=== PATIENT | female | born 1970 | race Asian ===

== ENCOUNTER 2020-03-30 07:09 | Outpatient (REF) | payer OTHER, SELFPAY | END 2020-03-30 07:10 | disposition home or self-care (01) | LOC: HO.LAB 07:09 | PROVIDERS: PCP Internal Medicine; Visit Provider Internal Medicine | DX: Z20.828 Contact with and (suspected) exposure to other viral communicable diseases (principal) | CPT/HCPCS: 87635 ==

== ENCOUNTER → 2021-03-04 13:16 | Outpatient (BNVA) | payer OTHER, SELFPAY | PROVIDERS: PCP Internal Medicine; Visit Provider Nurse Practitioner Family | DX: M54.16 Radiculopathy, lumbar region (principal); M79.18 Myalgia, other site | CPT/HCPCS: 99202 ==

== ENCOUNTER 2021-03-29 08:12 | Outpatient (REF) | payer OTHER, SELFPAY ==
[2021-03-29 08:22] LABS: MANUAL DIFF FLAG NO
[2021-03-29 09:13] LABS: Basophils Absolute Auto 0.1 X10*3/uL (0.0-0.2); Basophils Percent Auto 1.2 % (0-2); Eosinophils Absolute Auto 0.2 X10*3/uL (0.0-0.4); Eosinophils Percent Auto 3.8 % (0-4); Hematocrit 34.2 % (37-47); Hemoglobin 10.9 g/dl (12.0-16.0); Lymphocytes Absolute Auto 2.8 X10*3/uL (1.2-4.9); Lymphocytes Percent Auto 55.3 % (20-40); Mean Corpuscular HGB Conc 31.9 g/dl (31.0-35.0); Mean Corpuscular Hemoglobin 26.6 pg (27.0-33.0); Mean Corpuscular Volume 83.4 fL (80-98); Mean Platelet Volume 10.8 fL (9.4-12.3); Monocytes Absolute Auto 0.4 X10*3/uL (0.1-1.2); Monocytes Percent Auto 8.4 % (2-11); Neutrophils Absolute Auto 1.6 X10*3/uL (2.0-8.3); Neutrophils Percent Auto 31.3 % (45-73); Platelet Count 336 X10*3/uL (160-400); Red Cell Distribution Width 15.9 % (11.0-16.0)
[2021-03-29 09:42] LABS: Alanine Aminotransferase 14 U/L (0-31); Albumin Level 4.1 g/dL (3.5-5.0); Alkaline Phosphatase 95 U/L (39-117); Anion Gap 11 (12-20); Aspartate Amino Transferase 19 U/L (5-31); Bilirubin Total 0.4 mg/dL (0.0-1.0); Blood Urea Nitrogen 10 mg/dL (9-16); Calcium 9.3 mg/dL (8.4-10.2); Carbon Dioxide 28 mmol/L (22-29); Chloride 107 mmol/L (96-108); Cholesterol 229 mg/dL; Estimated Glomerular Filt Rate > 60; Glucose Fasting 96 mg/dL (60-99); HDL Cholesterol 46 mg/dL; LDL Cholesterol Calculated 149 mg/dl; Potassium 4.8 mmol/L (3.3-5.1); Sodium 141 mmol/L (135-145); Total Protein 7.2 g/dL (6.5-8.0); Triglycerides 171 mg/dL
[2021-04-02 13:41] LABS: Vitamin D 25-OH, D2 <4 ng/mL; Vitamin D 25-OH, D3 27 ng/mL; Vitamin D 25-OH, Total 27 ng/mL (30-100)
== END 2021-03-29 08:13 | disposition home or self-care (01) ==
LOC: HO.LAB 08:12
PROVIDERS: PCP Internal Medicine; Visit Provider Internal Medicine
DX: D64.9 Anemia, unspecified (principal); G43.909 Migraine, unspecified, not intractable, without status migrainosus; E78.5 Hyperlipidemia, unspecified; E55.9 Vitamin D deficiency, unspecified
CPT/HCPCS: 36415; 80053; 80061; 82306; 85025

== ENCOUNTER 2021-04-29 09:21 | Outpatient (REF) | payer OTHER, SELFPAY ==
[2021-04-29 10:44] LABS: Influenza A PCR NEGATIVE (Negative); Influenza B PCR NEGATIVE (Negative); Resp Syncy Virus RNA Qual PCR POSITIVE (Negative); SARS COV2 PCR INHOUSE NEGATIVE (Negative)
== END 2021-04-29 09:22 | disposition home or self-care (01) ==
LOC: HO.LAB 09:21
PROVIDERS: PCP Internal Medicine; Visit Provider Internal Medicine
DX: Z20.822 Contact with and (suspected) exposure to COVID-19 (principal); R43.9 Unspecified disturbances of smell and taste
CPT/HCPCS: 0241U; 36415

== ENCOUNTER 2021-07-04 09:26 | Outpatient (REF) | payer OTHER, SELFPAY ==
[2021-07-04 11:31] LABS: Appearance Urine CLEAR; Color Urine YELLOW; Glucose Urine UA NEG (NEG); Leukocyte Esterase Urine NEG (NEG); Nitrite Urine NEG (NEG); Specific Gravity - Urine <= 1.005 (1.005-1.025); UACC Culture Trigger NO; Urine Blood TRACE (NEG); Urine Ketones NEG (NEG); Urine Protein NEG (NEG-TRACE)
[2021-07-04 12:02] LABS: WBC Urine 0 /HPF (0-4)
== END 2021-07-04 09:27 | disposition home or self-care (01) ==
LOC: HO.LAB 09:26
PROVIDERS: PCP Internal Medicine; Referring Provider Internal Medicine; Visit Provider Internal Medicine Gastroenterology
DX: K62.5 Hemorrhage of anus and rectum (principal); K21.00 Gastro-esophageal reflux disease with esophagitis, without bleeding; R30.0 Dysuria
CPT/HCPCS: 81001; 99202

== ENCOUNTER 2021-08-01 10:14 | Emergency (ER) | payer OTHER, SELFPAY ==
[2021-08-01 10:25] VITALS: BP 146/81; PULSE 71; RESP 16; TEMP 36.6; O2SAT 100; BMI 24.7
--- NOTE | 2021-08-01 11:18 | ED.GENADULT ---
HPI - General Adult General Chief complaint: Abdominal Pain Stated complaint: RECTAL AND LEG PAIN Time Seen by Provider: 08/01/21 11:06 Source: patient Mode of arrival: ambulatory Limitations: no limitations History of Present Illness HPI narrative: Patient comes to the emergency room complaining of rectal pain. Patient states she has had hemorrhoids for 3 weeks. She was seen at [facility] for the same reason, she was prescribed rectal suppositories, topical medication. Patient states that the hemorrhoid keeps getting bigger and more painful. Patient states that she has not seen it bleed, but she can no longer sit due to pain. Patient states that she has been taking laxative, she is now having soft bowel movements. However, whenever she passes stool, the pain is very intense. Related Data Home Medications Medication Instructions Recorded Confirmed albuterol sulfate 90 mcg/actuation 2 puff INHALATION Q4-6H PRN 04/09/20 03/27/21 aerosol inhaler tizanidine 4 mg tablet 4 mg PO BEDTIME 07/04/21 Previous Rx's Medication Instructions Recorded omeprazole 40 mg capsule,delayed 40 mg PO DAILY 90 Days #90 cap 08/15/20 release cholecalciferol (vitamin D3) 50 50 mcg PO DAILY #30 tab 01/14/21 mcg (2,000 unit) tablet acyclovir 800 mg tablet 800 mg PO BID 5 Days #10 tab 03/28/21 escitalopram oxalate 10 mg tablet 10 mg PO DAILY 90 Days #90 tab 04/24/21 azithromycin 250 mg tablet See Rx Instructions PO .COMPLEX #6 04/29/21 tab fluticasone propionate 50 1 spray INTRANASAL DAILY #9.9 ml 04/29/21 mcg/actuation nasal spray,suspension (Flonase Allergy Relief) naproxen 500 mg tablet 500 mg PO BID PRN 30 Days #60 tab 05/19/21 ondansetron 4 mg disintegrating 4 mg PO Q8H PRN #20 tab 07/04/21 tablet bisacodyl 5 mg tablet,delayed 10 mg PO ONCE 1 Days #2 tab 07/15/21 release (Dulcolax (bisacodyl)) polyethylene glycol 3350 17 238 g PO ONCE 1 Days #238 g 07/15/21 gram/dose oral powder (Miralax) hydrocortisone acetate 25 mg 25 mg LA BEDTIME #12 ea 07/22/21 rectal suppository (Anusol-HC) hydroxyzine pamoate 25 mg capsule 25 mg PO BID PRN #20 cap 07/22/21 (Vistaril) nitroglycerin 0.4 % (w/w) rectal 1 inch LA BID #30 g 08/01/21 ointment polyethylene glycol 3350 17 gram 17 g PO BID 7 Days #14 ea 08/01/21 oral powder packet (Miralax) tramadol 50 mg tablet 50 mg PO BID PRN #7 tab 08/01/21 Allergies Allergy/AdvReac Type Severity Reaction Status Date / Time meloxicam [MELOXICAM] Allergy Intermediate NAUSEA & Verified 07/22/21 11:32 VOMITING, GI UPSET Penicillins [PENICILLINS] Allergy Intermediate RASH Verified 07/22/21 11:32 prednisone [PREDNISONE] Allergy Intermediate Hives, Rash Verified 07/22/21 11:32 Review of Systems Review of Systems: Constitutional : No Weight loss, No Fever, No Chills, No Night Sweats, No Fatigue, No Malaise ENT/Mouth : No Hearing loss, No Ear Pain, No Nasal Congestion, No Sinus Pain, No Hoarseness, No sore throat, No Rhinorrhea, No Swallowing Difficulty Eyes: No Eye Pain, No Swelling, No Redness, No Foreign Body, No Discharge, No Vision Changes Cardiovascular : No Chest Pain, No SOB, No Dyspnea on Exertion, No Orthopnea, No Edema, No Palpitations Respiratory : No Cough, No Sputum, No Wheezing, No Smoke Exposure, No Dyspnea Gastrointestinal : No Nausea, No Vomiting, No Diarrhea, No Constipation, No abdominal Pain, No Hematochezia, No Melena Genitourinary : no irregular bleeding, No Dysuria, No Urinary Frequency, No Hematuria, No Urinary Incontinence, No Urgency, No Flank Pain, No Urinary Flow Changes, No Hesitancy, complaining of rectal pain/hemorrhoid Musculoskeletal : No joint pain, No Myalgias, No Joint Swelling Skin : No Skin Lesions, No rash Neuro : No Weakness, No Numbness, No Paresthesias, No Loss of Consciousness, No Dizziness, No Headache Psych : No Anxiety/Panic, No Depression, No SI/HI/AH/VH, No Social Issues, Heme/Lymph: No Bruising, No Bleeding,No Lymphadenopathy Endocrine : No Polyuria, No Polydipsia, No Temperature Intolerance [facility] Past Medical History Medical History Back pain Constipation by delayed colonic transit RAVI (generalized anxiety disorder) GERD (gastroesophageal reflux disease) HSV-2 (herpes simplex virus 2) infection Migraines Mild persistent asthma, uncomplicated Mild recurrent major depression Mild single current episode of major depressive disorder Nausea Polyarthralgia Scoliosis Surgical History Amputated toe History of left knee surgery History of mammogram History of splenectomy History of tubal ligation Family History Family History Father Hypertension Diabetes CVD (cardiovascular disease) Mother Hypertension Social History Social History Housing: Apartment Alcohol intake: never Patient Tobacco Use Status: Never used Tobacco e-Cigarette/Vaping Use: Never Used Second Hand Smoke Exposure: No Advance Directives: No Advance Directives Information Provided: No service: No Current occupational status: unemployed Physical Exam ED Vital Signs: Vital Signs - 24 hr 08/01/21 10:25 Temperature 97.9 F Pulse Rate 71 Respiratory Rate 16 Blood Pressure 146/81 H Pulse Oximetry 100 BMI result Body Mass Index 24.7 Const Other: Appearance: Alert. Oriented X3. No acute distress. Eyes: Pupils equal, round and reactive to light. ENT: Pharynx normal. Neck: Normal inspection. Neck supple. No lymph nodes noted. No crepitus CVS: Normal heart rate and rhythm. Pulses normal. Normal S1 and S2 Respiratory: No respiratory distress. Breath sounds normal. No Wheezing. No rales Abdomen: Soft and nontender. No rigidity. No distention. Rectal: Patient has 2 thrombosed hemorrhoids, approximately 1 cm each, next to each other very painful to touch Skin: Skin warm and dry. Normal skin color. Normal skin turgor. Extremities: No lower extremity edema. No lower extremity edema. No Lacerations. No Rash Neuro: Oriented X 3. No motor deficit. No sensory deficit. Moving all extermities. No slurred speech. Course Course Course Narrative: I discussed with the patient that she will need an excision of the thrombosed hemorrhoid. Discussed with the patient the procedure. Patient states that she is agreeable. Patient denies being on any blood thinners Apical area was cleaned with Betadine, both hemorrhoids were injected with 2% lidocaine. Oval incisions were made over the 2 hemorrhoids. Two small blood clots were excised. Bleeding controlled. Patient will follow-up with surgery. Discharge Plan Discharge Clinical Impression: Hemorrhoids, external, thrombosed Patient Disposition: Home, Self-Care Instructions: Thrombosed Hemorrhoid (ED) Additional Instructions: Please follow-up with your primary care physician tomorrow. If you have any worsening or new symptoms, please return to the emergency room or call 911 Prescriptions: New nitroglycerin 0.4 % (w/w) ointment 1 inch LA BID Qty: 30 0RF tramadol 50 mg tablet 50 mg PO BID PRN (Reason: pain) Qty: 7 0RF polyethylene glycol 3350 [Miralax] 17 gram powder in packet 17 g PO BID 7 Days Qty: 14 0RF No Action omeprazole 40 mg capsule,delayed release(DR/EC) 40 mg PO DAILY 90 Days Qty: 90 3RF cholecalciferol (vitamin D3) 50 mcg (2,000 unit) tablet 50 mcg PO DAILY Qty: 30 11RF acyclovir 800 mg tablet 800 mg PO BID 5 Days Qty: 10 1RF escitalopram oxalate 10 mg tablet 10 mg PO DAILY 90 Days Qty: 90 3RF naproxen 500 mg tablet 500 mg PO BID PRN (Reason: pain) 30 Days Qty: 60 1RF bisacodyl [Dulcolax (bisacodyl)] 5 mg tablet,delayed release (DR/EC) 10 mg PO ONCE 1 Days Qty: 2 0RF Rx Instructions: Take 2 tablets at 12:00pm the day before your procedure, bowel prep polyethylene glycol 3350 [Miralax] 17 gram/dose powder 238 g PO ONCE 1 Days Qty: 238 0RF Rx Instructions: Take as directed by mouth, bowel prep albuterol sulfate 90 mcg/actuation HFA aerosol inhaler 2 puff inhalation Q4-6H PRN0RF azithromycin 250 mg tablet See Rx Instructions PO .COMPLEX Qty: 6 0RF Rx Instructions: take 500 mg today (day 1), then 250 mg for 4 days (days 2-5) PO fluticasone propionate [Flonase Allergy Relief] 50 mcg/actuation spray,suspension 1 spray intranasal DAILY Qty: 9.9 1RF Rx Instructions: administer into each nostril hydroxyzine pamoate [Vistaril] 25 mg capsule 25 mg PO BID PRN (Reason: anxiety) Qty: 20 0RF hydrocortisone acetate [Anusol-HC] 25 mg suppository 25 mg LA BEDTIME Qty: 12 0RF tizanidine 4 mg tablet 4 mg PO BEDTIME 0RF ondansetron 4 mg tablet,disintegrating 4 mg PO Q8H PRN (Reason: nausea and vomiting) Qty: 20 0RF Referrals: Nestor Mcconnell MD [Physician] - 2 days
[2021-08-01] MEDS: oxyCODONE HCl Immed Release 5 MG TABLET PO (11:36)
[2021-08-01] MEDS: Lidocaine HCl 2 % MPF 5 ML VIAL 10 ML INFILTRATI (11:40)
[2021-08-01 13:09] VITALS: BP 131/72; PULSE 66; RESP 15; TEMP 36.3; O2SAT 98
== END 2021-08-01 13:35 | disposition home or self-care (01) ==
PROVIDERS: Emergency Provider Emergency Medicine; PCP Internal Medicine
DX: K64.5 Perianal venous thrombosis (principal); K62.89 Other specified diseases of anus and rectum
CPT/HCPCS: 46083; 99284

== ENCOUNTER → 2021-08-07 07:59 | Outpatient (BNVA) | payer OTHER, SELFPAY | PROVIDERS: PCP Internal Medicine; Referring Provider Internal Medicine; Visit Provider Surgery | DX: K64.4 Residual hemorrhoidal skin tags (principal); K64.8 Other hemorrhoids | CPT/HCPCS: 46600; 99202 ==

== ENCOUNTER 2021-08-12 12:08 | Outpatient (REF) | payer OTHER, SELFPAY ==
--- NOTE | ~2021-08-12 | MM_ITS ---
EXAMINATION: MM SCREENING DIGITAL BREAST TOMOSYNTHESIS, BILATERAL CLINICAL INFORMATION: Screening. Asymptomatic. The lifetime risk of breast cancer based on the Tyrer-Cuzick Model is 6%. COMPARISON: Mammography: 10/18/2018, 10/17/2015 TECHNIQUE: Digital breast tomosynthesis is performed in both the craniocaudal and mediolateral oblique views along with computer-aided detection (CAD). Synthesized 2D images are generated from the tomosynthesis. Additional left MLO view is provided. FINDINGS: There are scattered areas of fibroglandular density (ACR BI-RADS breast composition Category b). There are no significant masses, abnormal calcifications, or other abnormalities. Parenchymal pattern is similar to prior studies. There are no significant changes. MM/MM tomosynthesis screening BI IMPRESSION: No mammographic evidence of malignancy. ASSESSMENT: BI-RADS 1: Negative RECOMMENDATION: Routine annual mammography screening. This patient's information was entered into a reminder system with a target due date for their next mammogram.
== END 2021-08-12 12:09 | disposition home or self-care (01) ==
LOC: HO.MAMMO 12:08
PROVIDERS: PCP Internal Medicine; Visit Provider Internal Medicine
DX: Z12.31 Encounter for screening mammogram for malignant neoplasm of breast (principal)
CPT/HCPCS: 77063; 77067

== ENCOUNTER 2021-12-29 10:34 | Outpatient (REF) | payer OTHER, SELFPAY ==
--- NOTE | ~2021-12-29 | XR_ITS ---
EXAMINATION: XR ELBOW, LEFT CLINICAL INFORMATION: Pain. COMPARISON: None TECHNIQUE: AP, lateral, and oblique views of the left elbow. FINDINGS: There is no evidence of acute fracture or dislocation of the left elbow. No elbow effusion is evident. Joint spaces are maintained. There is some soft tissue prominence seen about the olecranon which may be related to olecranon bursa. XR/XR elbow LT min 3V IMPRESSION: 1. No bony abnormality of the left elbow identified. 2. No effusion. 3. Possible olecranon bursitis.
[2021-12-29 14:21] LABS: Cholesterol 248 mg/dL; HDL Cholesterol 48 mg/dL; LDL Cholesterol Calculated 173 mg/dl; Triglycerides 135 mg/dL
== END 2021-12-29 10:35 | disposition home or self-care (01) ==
LOC: HO.HMGCLDS 10:34
PROVIDERS: Visit Provider Nurse Practitioner Family
DX: M25.522 Pain in left elbow (principal); E78.00 Pure hypercholesterolemia, unspecified
CPT/HCPCS: 36415; 73080; 80061

== ENCOUNTER 2021-12-30 09:08 | Emergency (ER) | payer OTHER, SELFPAY | END 2021-12-30 10:57 | disposition left against medical advice (07) | PROVIDERS: Emergency Provider Emergency Medicine; PCP Internal Medicine | DX: R10.9 Unspecified abdominal pain (principal) ==

== ENCOUNTER 2022-05-11 10:39 | Outpatient (REF) | payer OTHER, SELFPAY ==
--- NOTE | ~2022-05-11 | XR_ITS ---
EXAMINATION: XR CHEST CLINICAL INFORMATION: Pneumonia. COMPARISON: 08/18/2018 chest radiographs. TECHNIQUE: 2 views of the chest were obtained. FINDINGS: No significant abnormality is noted involving the heart, lungs, mediastinum, bony thorax or soft tissues. XR/XR chest 2V IMPRESSION: No acute cardiopulmonary process.
== END 2022-05-11 10:40 | disposition home or self-care (01) ==
LOC: HO.HMGCX 10:39
PROVIDERS: PCP Internal Medicine; Visit Provider Internal Medicine
DX: J18.9 Pneumonia, unspecified organism (principal)
CPT/HCPCS: 71046

== ENCOUNTER 2022-05-11 11:25 | Outpatient (REF) | payer OTHER, SELFPAY ==
[2022-05-11 14:44] LABS: Influenza A PCR POSITIVE (Negative); Influenza B PCR NEGATIVE (Negative); Resp Syncy Virus RNA Qual PCR NEGATIVE (Negative); SARS COV2 PCR INHOUSE NEGATIVE (Negative)
== END 2022-05-11 11:26 | disposition home or self-care (01) ==
LOC: HO.LAB 11:25
PROVIDERS: Visit Provider Internal Medicine
DX: Z20.822 Contact with and (suspected) exposure to COVID-19 (principal); R43.9 Unspecified disturbances of smell and taste
CPT/HCPCS: 0241U

== ENCOUNTER 2022-06-22 06:22 | Outpatient (REF) | payer OTHER, SELFPAY ==
[2022-06-22 07:52] LABS: Appearance Urine Clear; Color Urine Yellow; Glucose Urine UA Negative (Negative); Leukocyte Esterase Urine Negative (Negative); Nitrite Urine Negative (Negative); PH 8.5 (5.0-9.0); Urine Blood Negative (Negative); Urine Ketones Negative (Negative); Urine Protein Negative (Neg-Trace)
[2022-06-22 08:09] LABS: Alanine Aminotransferase 14 U/L (0-31); Alkaline Phosphatase 96 U/L (39-117); Anion Gap 11 (12-20); Aspartate Amino Transferase 19 U/L (5-31); Bilirubin Total 1.1 mg/dL (0.0-1.0); Blood Urea Nitrogen 10 mg/dL (9-16); Carbon Dioxide 29 mmol/L (22-29); Chloride 105 mmol/L (96-108); Cholesterol 250 mg/dL; Estimated Glomerular Filt Rate > 60; Glucose Fasting 88 mg/dL (60-99); HDL Cholesterol 51 mg/dL; LDL Cholesterol Calculated 174 mg/dl; Sodium 140 mmol/L (135-145); Total Protein 7.1 g/dL (6.5-8.0); Triglycerides 127 mg/dL
== END 2022-06-22 06:23 | disposition home or self-care (01) ==
LOC: HO.LAB 06:22
PROVIDERS: PCP Internal Medicine; Visit Provider Internal Medicine
DX: Z00.00 Encounter for general adult medical examination without abnormal findings (principal); R30.0 Dysuria; E78.5 Hyperlipidemia, unspecified
CPT/HCPCS: 36415; 80053; 80061; 81003

== ENCOUNTER 2023-10-12 16:15 | Outpatient (AMB) | payer OTHER, SELFPAY ==
--- NOTE | 2023-10-12 16:20 | MHC.PC.OV ---
Vital Signs 10/12/23 16:21 Height 5 ft 4 in Weight 137 lb BMI 23.5 BP 152/70 H Blood Pressure Location Lt brachial Position Sitting Intake Visit Reasons: Leg & Back Pain Intake Note: Patient here c/o leg pain, back pain, hand pain Supervisor Hot Dip Tinning Required: No Accompanied by: Self / Same As Patient Allergies meloxicam [MELOXICAM] Allergy (Intermediate, Verified 10/12/23 16:36) NAUSEA & VOMITING, GI UPSET Penicillins [PENICILLINS] Allergy (Intermediate, Verified 10/12/23 16:36) RASH prednisone [PREDNISONE] Allergy (Intermediate, Verified 10/12/23 16:36) Hives, Rash Medication List - Last Reconciled 10/12/23 by Erica Corral MD acetaminophen ER 650 mg PO Q8H PRN 30 days fluticasone propionate 50 mcg/actuation (Flonase Allergy Relief) 1 spray intranasal DAILY omeprazole 40 mg PO DAILY 90 days tramadol 50 mg PO BID PRN 30 days Ventolin HFA 90 mcg/actuation (albuterol sulfate) 2 puffs PO Q6H PRN NS Tobacco use date assessed: 10/12/23 Dental Screening Dental Screen Date: 10/12/23 Did you have a dental visit in the last 12 months?: No Did you have a dental problem in the last 6 months where you did not have access to dental care?: No Was dental information given to patient?: Patient has dentist HPI HPI Comments History of Present Illness Details This is a 52-year-old female with mild major depression, mild asthma, lumbar radiculopathy and migraines that comes today for follow-up on her conditions. Blood pressure elevated and will be recheck in 3 weeks by nurse navigator. Denies any suicidal thoughts and declines treatment for depression. Asthma has been stable and use rescue inhaler as needed. On tramadol for her lumbar radiculopathy which also helps with the migraines occasionally. Complains of low back pain that has been radiating more to the left leg. Went to see pain management but would like another referral to see them. Pain management order an MRI and she got scared and was not able to do it. Has elevated cholesterol that will be repeated. [facility] Medical History (Updated 10/12/23 @ 16:56 by Erica Corral MD) Hemorrhoids with complication Mild recurrent major depression HSV-2 (herpes simplex virus 2) infection Mild persistent asthma, uncomplicated Migraines RAVI (generalized anxiety disorder) Mild single current episode of major depressive disorder Scoliosis Back pain Polyarthralgia Constipation by delayed colonic transit Nausea GERD (gastroesophageal reflux disease) Surgical History History of mammogram History of tubal ligation History of left knee surgery Amputated toe History of splenectomy Family History Father Hypertension Diabetes CVD (cardiovascular disease) Mother Hypertension Social History Housing: Apartment Alcohol intake: never Patient Tobacco Use Status: Never used Tobacco e-Cigarette/Vaping Use: Never Used Second Hand Smoke Exposure: No service: No Current occupational status: unemployed Cognitive needs: No Hearing needs: No Vision needs: No Questionnaire PHQ-9 Over the last 2 weeks, how often have you been bothered by any of the following problems? 1. Little interest or pleasure in doing things: several days 2. Feeling down, depressed, or hopeless: more than half the days 3. Trouble falling or staying asleep, or sleeping too much: nearly every day 4. Feeling tired or having little energy: more than half the days 5. Poor appetite or overeating: several days 6. Feeling bad about yourself - or that you are a failure or have let yourself or your family down: several days 7. Trouble concentrating on things, such as reading the newspaper or watching television: more than half the days 8. Moving or speaking so slowly that other people could have noticed. Or the opposite - being so fidgety or restless that you have been moving around a lot more than usual: nearly every day 9. Thoughts that you would be better off or of hurting yourself in some way: not at all Total score: 15 Depression Screening Interpretation: Positive (no suicidal thoughts) Depression Screening Follow-up: Existing condition Depression Screening Done: Yes 34716 - PHQ-9 Billing: Yes Source: Developed by Drs. Bucky Sarmiento, Della Tsang, Rodney Hernandez and colleagues, with an educational anjum from [employer]. Thrive Questionnaire Date Thrive assessed: 10/12/23 I am a: Patient What is your living situation today?: I have a steady place to live Within the past 12 months, did the food you bought not last and you didn't have the money to get more?: Never true Within the past 12 months, did you worry whether your food would run out before you got money to buy more?: Never true Do you have trouble paying for medicines?: No Do you have trouble getting transportation to medical appointments?: No Do you have trouble paying your heating and electricity bill?: No Do you have trouble taking care of your child, family member or friend?: No Do you have trouble with day-to-day activities such as bathing, preparing meals, shopping, managing finances, etc.?: No Are you currently unemployed and looking for a job?: No Are you interested in more education?: No Please select the resources that you would like help with: None Currently or been in a relationship where the following occur: no concerns reported THRIVE Score: 0 AUDIT C Alcohol Use Questionnaire (AUDIT-C) 1. How often do you have a drink containing alcohol?: Never Total Score: 0 Score Reviewed/Action Taken: No RAVI-7 AMB Questionnaire RAVI-7 Date RAVI - 7 assessed: 10/12/23 Feeling nervous, anxious, or on edge: 2 = More than half the days Not being able to stop or control worryin = Not at all Worrying too much about different things: 2 = More than half the days Trouble relaxin = Several days Being so restless that it is hard to sit still: 3 = Nearly every day Becoming easily annoyed or irritable: 1 = Several days Feeling afraid as if something awful might happen: 1 = Several days Total RAVI-7 score (0-4 normal; 5-9 mild; 10-14 moderate; 15-21 severe): 10 Source: Developed by Drs. Bucky Sarmiento, Della Tsang, Rodney Hernandez and colleagues, with an educational anjum from [employer]. RAVI-7 Assessment Billing RAVI-7 Assessment Tool: RAVI-7 Assessment 40238 Review of Systems Const All systems reviewed & are unremarkable except as noted in HPI and below Eyes Reports no additional complaints, Denies change in vision and Denies other visual disturbances Card Denies chest pain at rest, Denies chest pain with activity, Denies edema, Denies irregular heart rhythm, Denies claudication, Denies dyspnea, Denies dyspnea on exertion, Denies orthopnea, Denies paroxysmal nocturnal dyspnea and Denies slow heart rate Resp Denies cough, Denies dyspnea and Denies dyspnea on exertion Musc Reports back pain and Reports radiating pain into limb Physical exam (Primary Care) Vital Signs: Last Vital Signs BP 152/70 H 10/12/23 16:21 BMI result Body Mass Index 23.5 Tobacco/Smoking Status: Tobacco use Status Tobacco use date assessed 10/12/23 10/12/23 16:31 Patient Tobacco Use Status Never used Tobacco 10/12/23 16:31 e-Cigarette/Vaping Use Never Used 10/12/23 16:31 PHQ-9: PHQ-9 Score PHQ-9: Total score 15 10/12/23 16:31 Depression Screening Interpretation: Positive (no suicidal thoughts) Depression Screening Follow-up: Existing condition Thrive Assessment: Date of Thrive Assessment Date Thrive assessed 10/12/23 10/12/23 16:31 Currently or been in a relationship where the following occur: no concerns reported Resp Effort & Inspection: normal respiratory effort Auscultation: clear to auscultation bilaterally Cardio Jugular venous distension: no JVD Rate: regular rate Rhythm: regular rhythm Heart sounds: S1 normal heart sound present and S2 normal heart sound present Extrem General: Yes full ROM Assessment and Plan Assessment & Plan (1) Mild recurrent major depression: Code(s): F33.0 - Major depressive disorder, recurrent, mild Plan: Declines treatment. (2) Bilateral lumbar radiculopathy: Code(s): M54.16 - Radiculopathy, lumbar region Plan: Continue tramadol as needed. Referred to pain management. (3) Mild persistent asthma, uncomplicated: Code(s): J45.30 - Mild persistent asthma, uncomplicated Plan: Use rescue inhaler as needed. (4) Migraines: Code(s): G43.909 - Migraine, unspecified, not intractable, without status migrainosus Plan: Use tramadol as needed. Orders: Orders XR DEXA axial skeleton Today N95.9 - Unspecified menopausal and perimenopausal disorder Lipid Panel Today E78.5 - Hyperlipidemia, unspecified Comprehensive [place]. Panel Fast Today M54.16 - Radiculopathy, lumbar region MM screening mammo BI Today Z12.31 - Encounter for screening mammogram for malignant neoplasm of breast Vitamin D 25-OH Total Today E55.9 - Vitamin D deficiency, unspecified Vitamin B12 and Folate Today E53.8 - Deficiency of other specified B group vitamins Complete Blood Count Auto Diff Today M54.16 - Radiculopathy, lumbar region Referrals Pain Management Referral M54.16 - Radiculopathy, lumbar region Coding Level of Care Code Est Pt Level 4 (85929) Diagnoses Mild recurrent major depression F33.0 Bilateral lumbar radiculopathy M54.16 Mild persistent asthma, uncomplicated J45.30 Migraines G43.909 Additional Codes RAVI-7 Assessment Billing - RAVI-7 Assessment Tool: RAVI-7 Assessment 97816 ([id number]) Time Spent (min) 23
[2023-10-12 16:21] VITALS: BP 152/70; BMI 23.5
== END 2023-10-12 16:50 | disposition home or self-care (01) ==
PROVIDERS: PCP Internal Medicine; Visit Provider Internal Medicine
DX: M54.16 Radiculopathy, lumbar region (principal); F33.0 Major depressive disorder, recurrent, mild; J45.30 Mild persistent asthma, uncomplicated; G43.909 Migraine, unspecified, not intractable, without status migrainosus
CPT/HCPCS: 99214

== ENCOUNTER 2023-10-18 06:30 | Outpatient (REF) | payer OTHER, SELFPAY ==
[2023-10-18 06:52] LABS: MANUAL DIFF FLAG NO
[2023-10-18 07:53] LABS: Basophils Absolute Auto 0.1 X10*3/uL (0.0-0.2); Basophils Percent Auto 0.7 % (0-2); Eosinophils Absolute Auto 0.1 X10*3/uL (0.0-0.4); Eosinophils Percent Auto 1.5 % (0-4); Hematocrit 36.4 % (37.0-47.0); Hemoglobin 12.2 g/dl (12.0-16.0); Imm Gran Abs Auto 0.02 X10*3/uL (0.00-0.03); Imm Gran Pct Auto 0.3 % (0.0-0.4); Lymphocytes Percent Auto 39.6 % (20-40); Mean Corpuscular HGB Conc 33.5 g/dl (31.0-35.0); Mean Corpuscular Hemoglobin 30.4 pg (27.0-33.0); Mean Corpuscular Volume 90.8 fL (80.0-98.0); Mean Platelet Volume 10.4 fL (9.4-12.3); Monocytes Absolute Auto 0.6 X10*3/uL (0.1-1.2); Monocytes Percent Auto 8.3 % (2-11); Neutrophils Absolute Auto 3.7 x10*3/uL (2.0-8.3); Neutrophils Percent Auto 49.6 % (45-73); Platelet Count 337 X10*3/uL (160-400); Red Blood Count 4.01 X10*6/uL (4.20-5.50); Red Cell Distribution Width 12.3 % (11.0-16.0); White Blood Count 7.5 X10*3/uL (4.8-10.8)
[2023-10-18 08:29] LABS: Alanine Aminotransferase 15 U/L (0-31); Alkaline Phosphatase 100 U/L (39-117); Anion Gap 11 (12-20); Aspartate Amino Transferase 18 U/L (5-31); Blood Urea Nitrogen 8 mg/dL (9-16); Calcium 9.8 mg/dL (8.4-10.2); Carbon Dioxide 29 mmol/L (22-29); Chloride 104 mmol/L (96-108); Cholesterol 213 mg/dL (<200); Estimated Glomerular Filt Rate > 60; Glucose Fasting 91 mg/dL (60-99); HDL Cholesterol 51 mg/dL (>40); LDL Cholesterol Calculated 143 mg/dL (<100); Potassium 4.1 mmol/L (3.3-5.1); Sodium 140 mmol/L (135-145); Total Protein 7.2 g/dL (6.5-8.0); Triglycerides 98 mg/dL (<150)
[2023-10-18 08:47] LABS: Vitamin D 25-OH Total 30.5 ng/mL (>30)
[2023-10-18 08:56] LABS: Folate 9.6 ng/mL (> or = 4.0); Vitamin B12 279 pg/mL (200-900)
== END 2023-10-18 06:31 | disposition home or self-care (01) ==
LOC: HO.LAB 06:30
PROVIDERS: PCP Internal Medicine; Visit Provider Internal Medicine
DX: E78.5 Hyperlipidemia, unspecified (principal); E55.9 Vitamin D deficiency, unspecified; M54.16 Radiculopathy, lumbar region; E53.8 Deficiency of other specified B group vitamins
CPT/HCPCS: 36415; 80053; 80061; 82306; 82607; 82746; 85025

== ENCOUNTER 2023-10-22 09:14 | Outpatient (AMB) | payer OTHER, SELFPAY ==
--- NOTE | 2023-10-22 09:18 | MHC.OFFVIS ---
Vital Signs 10/22/23 09:23 Height 5 ft 4 in Weight 134 lb 2 oz BMI 23.0 BP 133/78 Blood Pressure Location Lt brachial Position Sitting Respiration 20 Pulse 76 Pulse Source Pulse Oximeter Pulse Oximetry (%) 98 Oxygen Delivery Method Room Air Intake Visit Reasons: Radiculopathy, lumbar region Allergies meloxicam [MELOXICAM] Allergy (Intermediate, Verified 10/22/23 09:17) NAUSEA & VOMITING, GI UPSET Penicillins [PENICILLINS] Allergy (Intermediate, Verified 10/22/23 09:17) RASH prednisone [PREDNISONE] Allergy (Intermediate, Verified 10/22/23 09:17) Hives, Rash HPI Comments Details: Risa presents back to the office today for follow up lower back pain. She is Polish-speaking only, her daughter is present during the visit and assisted with interpretation. Patient declined [facility] provided emergency medical tech services. Last visit here 02/2021, MRI LS was ordered for lumbar radiculopathy. Patient reports she was not able to commit to the MRI as she is nervous about enclosed spaces. She would be willing to try an open MRI. Since that visit her pain has worsened, continues with pain down both legs to the feet. Endorses numbness and tingling of the legs. Denies red flag symptoms including new loss of bowel, bladder or saddle anesthesia Patient currently taking Tramadol prescribed by her pcp with minimal improvement of her symptoms. 03/04/21 Prior visit with Corinna Palacios NP, Risa is a pleasant wallisian speaking 50 year old female who presents with widespread pain for over 5 years. She is accompanied by her daughter and is requesting to use her for translation. She defers use of our translating services. Given her widespread pain we focused on her neck and low back pain which has been most troublesome. She reports pain throughout the base of the neck that radiates down bilateral arms, L>R, into her hands, with occasional weakness. She denies any associated numbness/tingling. She also reports low back pain which radiates down bilateral legs laterally with a burning sensation into her feet. She denies any numbness, tingling, weakness or bowel/bladder dysfunction. The pain is worse at night and less severe during the day. She reports pain onset was sudden and has gradually worsened. She states the pain is constant and rates the pain a 8-10/10. She states the pain is interfering with sleep, activities of daily living and she cannot care for herself normally. Her daughter is her LOCAL AREA NETWORK ADMINISTRATOR. She is currently on disability and unable to work due to the pain. The patient reports the pain in terms of tissue damage as cramping, burning, and heavy. Her pain is exacerbated by activity as well as prolonged sitting/standing and also reports pain can be present at rest. She states she can only stand for 5-10 minutes. She has been taking naproxen as well as trialed other medications such as topicals, gabapentin, tizanidine and methocarbamol but states she felt off when taking them. She notes in the past she was prescribed oxycodone 5 mg BID by her previous PCP which worked well. She was also prescribed flexeril in the past with moderate effect, but does not have any more refills on this prescription. She denies any recent physical therapy, chiropractic manipulation, massage or acupuncture. Denies any previous neck/back injections or surgery. She reports having a MRI many years ago and when reviewing her visits through [facility], it appears the status of many are aborted as she reports claustrophobia. [facility] Medical History (Updated 10/22/23 @ 09:45 by Isabel Marino APRN, CHECKER/STOCKER) Hemorrhoids with complication Mild recurrent major depression HSV-2 (herpes simplex virus 2) infection Mild persistent asthma, uncomplicated Migraines RAVI (generalized anxiety disorder) Mild single current episode of major depressive disorder Scoliosis Back pain Polyarthralgia Constipation by delayed colonic transit Nausea GERD (gastroesophageal reflux disease) Surgical History History of mammogram History of tubal ligation History of left knee surgery Amputated toe History of splenectomy Family History Father Hypertension Diabetes CVD (cardiovascular disease) Mother Hypertension Social History Housing: Apartment Alcohol intake: never Patient Tobacco Use Status: Never used Tobacco e-Cigarette/Vaping Use: Never Used Second Hand Smoke Exposure: No service: No Current occupational status: unemployed Cognitive needs: No Hearing needs: No Vision needs: No Review of Systems Const All systems reviewed & are unremarkable except as noted in HPI and below Physical Exam Vital Signs: Last Vital Signs Pulse 76 10/22/23 09:23 Resp 20 10/22/23 09:23 BP 133/78 10/22/23 09:23 Pulse Ox 98 10/22/23 09:23 Oxygen Delivery Method Room Air 10/22/23 09:23 BMI result Body Mass Index 23.0 General: awake, alert, oriented. Answers questions appropriately. Fully engaged in examination. Skin: warm, dry, intact HEENT: Normocephalic. Hearing intact. Cardiac: External chest normal in appearance. Respiratory: No cough, audible wheezing or stridor. Abdomen: without gross distension. MS: No obvious swelling or deformities. Able to stand on bilateral tiptoes and bilateral heels.? Able to transition from sit to stand unassisted. Ambulates with bilaterally normal heel strike and toe off SLR with dorsiflexion positive bilaterally Tender to palpation midline lumbar vertebrae and lumbar paraspinal muscles Nontender over PSIS Bilateral lower extremity strength 5/5 Facet loading positive lumbar and cervical Decreased lumbar range of motion, reported pain increase with flexion extension. Neurological: Oriented to person, place, time and situation. Thought process intact. No gait abnormalities appreciated. Psychiatric: Appropriate mood and affect. Good judgment and insight. Assessment & Plan Assessment & Plan (1) Lumbar spondylosis: Code(s): M47.816 - Spondylosis without myelopathy or radiculopathy, lumbar region Category: Medical (2) Cervical spondylosis: Code(s): M47.812 - Spondylosis without myelopathy or radiculopathy, cervical region Category: Medical (3) Bilateral lumbar radiculopathy: Code(s): M54.16 - Radiculopathy, lumbar region Category: Medical Plan Patient presents back to the office today for follow-up chronic lower back pain History, physical exam and provocative testing testing consistent with bilateral lumbar radiculopathy. Previous MRI ordered in 2020, the patient was unable to tolerate. Given the extent of her symptoms and length that she has been suffering this pain will reorder at [facility] where open MRI can be performed. Lumbar spine and x-rays cervical spine ordered for evaluation Continue with tramadol as prescribing PCP Diclofenac topical, apply to most painful area as needed All questions and concerns answered, patient agrees pain. Follow-up after MRI, sooner if needed Orders: Orders XR lumbar spine 4V min Today M47.816 - Spondylosis without myelopathy or radiculopathy, lumbar region XR cervical spine w flex/ext Today M47.812 - Spondylosis without myelopathy or radiculopathy, cervical region MR lumbar spine wo con Today M54.16 - Radiculopathy, lumbar region Medications: New diclofenac sodium 3% apply to most painful area twice daily as needed for pain 1 appl topical BID 100 grams 0RF Coding Level of Care Code Est Pt Level 4 (42114) Diagnoses Lumbar spondylosis M47.816 Cervical spondylosis M47.812 Bilateral lumbar radiculopathy M54.16
[2023-10-22 09:23] VITALS: BP 133/78; PULSE 76; RESP 20; O2SAT 98; BMI 23.0
== END 2023-10-22 10:03 | disposition home or self-care (01) ==
PROVIDERS: PCP Internal Medicine; Referring Provider Internal Medicine; Visit Provider Registered Nurse Emergency
DX: M47.816 Spondylosis without myelopathy or radiculopathy, lumbar region (principal); M47.812 Spondylosis without myelopathy or radiculopathy, cervical region; M54.16 Radiculopathy, lumbar region
CPT/HCPCS: 99214

== ENCOUNTER → 2023-10-22 09:14 | Outpatient (BNVA) | payer OTHER, SELFPAY | PROVIDERS: PCP Internal Medicine; Referring Provider Internal Medicine; Visit Provider Registered Nurse Emergency | DX: M47.26 Other spondylosis with radiculopathy, lumbar region (principal); M47.812 Spondylosis without myelopathy or radiculopathy, cervical region | CPT/HCPCS: 99212 ==

== ENCOUNTER 2023-10-27 09:20 | Outpatient (REF) | payer OTHER, SELFPAY ==
--- NOTE | ~2023-10-27 | XR_ITS ---
EXAMINATION: XR LUMBOSACRAL SPINE WITH OBLIQUES CLINICAL INFORMATION: Spondylosis without myelopathy or radiculopathy, lumbar region COMPARISON: None available. TECHNIQUE: AP, both oblique, and lateral views of the lumbar spine. Lateral view of the lumbosacral junction. FINDINGS: The vertebral bodies and posterior elements are normal. The disc spaces are preserved and the vertebral alignment is normal. The paraspinal soft tissues are normal. 2 surgical clips are seen in the left upper quadrant. XR/XR lumbar spine 4V min IMPRESSION: Unremarkable examination.
--- NOTE | ~2023-10-27 | XR_ITS ---
EXAMINATION: XR CERVICAL SPINE CLINICAL INFORMATION: Neck pain. COMPARISON: None available. TECHNIQUE: 5 views of the cervical spine, inclusive of flexion and extension views, were obtained. FINDINGS: There is trace anterolisthesis of C3 in relation to C4. With flexion the degree of anterolisthesis at this level remains stable. There is improvement in the anterolisthesis at this level with extension. Vertebral body heights are preserved. There is mild narrowing of the C2-C3 intervertebral disc space. The remaining intervertebral disc spaces throughout the cervical region appear preserved. The C1-C2 relationship is anatomic. The dens is intact. Prevertebral soft tissue is normal in appearance. The lung apices are clear. Regional soft tissue is unremarkable. XR/XR cervical spine w flex/ext IMPRESSION: There is trace anterolisthesis of C3 in relation to C4. With flexion the degree of anterolisthesis at this level remains stable. There is improvement in the anterolisthesis at this level with extension.
== END 2023-10-27 09:21 | disposition home or self-care (01) ==
LOC: HO.XRAY 09:20
PROVIDERS: PCP Internal Medicine; Visit Provider Registered Nurse Emergency
DX: M47.816 Spondylosis without myelopathy or radiculopathy, lumbar region (principal); M47.812 Spondylosis without myelopathy or radiculopathy, cervical region
CPT/HCPCS: 72052; 72110

== ENCOUNTER 2023-11-11 08:27 | Outpatient (REF) | payer OTHER, SELFPAY ==
--- NOTE | ~2023-11-11 | MM_ITS ---
EXAMINATION: BONE DENSITOMETRY CLINICAL INDICATION: Menopause. COMPARISON: This is the patient's baseline examination. TECHNIQUE: Using a [employer] DXA System (software version: 13.1) manufactured by [employer], dual-energy x-ray absorptiometry was performed of the lumbar spine and left hip. The images are of good technical quality. Summary results are attached. FINDINGS: LEFT FEMUR, NECK: BMD 0.865 g/cm2, Z-score -0.2, T-score -1.2, osteopenia. LEFT FEMUR, TOTAL: BMD 0.893 g/cm2, Z-score -0.2, T-score -0.9, normal. AP SPINE L1-L4: BMD 1.018 g/cm2, Z-score -0.5, T-score -1.4, osteopenia. IDENTIFIED RISK FACTORS: Menopause. HISTORY OF FRACTURE: None listed. MEDICATIONS: None listed. MM/XR DEXA axial skeleton IMPRESSION: 1. DIAGNOSIS: Osteopenia based on the lowest T-score value of -1.4 in the lumbar spine applying World Health Organization criteria. 2. 10-YEAR FRACTURE RISK PREDICTION, FRAX: Major osteoporotic fracture (clinical spine, forearm, hip or shoulder) 3.0%. Hip fracture 0.2%. 3. Treatment Recommendations: NOF guidelines recommend consideration for treatment in postmenopausal women and men age 50 and older presenting with the following: -A hip or vertebral (clinical or morphometric) fracture. -T-score less than or equal to -2.5 at the femoral neck or spine after appropriate evaluation to exclude secondary causes. -Low bone mass at the hip or spine and a 10-year fracture probability by FRAX of greater than or equal to 3% for hip fracture or greater than or equal to 20% for major osteoporotic fracture based on the [place] adapted WHO algorithm. 4. Other Recommendations: All treatment decisions require clinical judgment and consideration of individual patient factors, including patient preferences, comorbidities, previous drug use, risk factors not captured in the FRAX model (e.g. frailty, falls, vitamin D deficiency, increased bone turnover, interval significant decline in bone density) and possible under or overestimation of fracture risk by FRAX. Additional medical evaluation for secondary cause of low bone mineral density may be appropriate. FUTURE SCAN RECOMMENDATION: People with diagnosed cases of osteoporosis or at high risk for fracture should have regular bone mineral density tests. For patients eligible for Medicare, routine testing is allowed once every 2 years. The testing frequency can be increased to one year for patients who have rapidly progressing disease, those who are receiving or discontinuing medical therapy to restore bone mass, or have additional risk factors.
--- NOTE | ~2023-11-11 | MM_ITS ---
EXAMINATION: MM SCREENING DIGITAL BREAST TOMOSYNTHESIS, BILATERAL CLINICAL INFORMATION: Screening. Asymptomatic. COMPARISON: Mammography: This study is compared with prior exams dating back to 2016. TECHNIQUE: Digital breast tomosynthesis is performed in both the craniocaudal and mediolateral oblique views along with computer-aided detection (CAD). Synthesized 2D images are generated from the tomosynthesis. FINDINGS: The breasts are almost entirely fatty (ACR BI-RADS breast composition Category a). There are no significant masses, abnormal calcifications, or other abnormalities. MM/MM tomosynthesis screening BI IMPRESSION: No mammographic evidence of malignancy. ASSESSMENT: BI-RADS BI-RADS 1 - Negative RECOMMENDATION: Routine annual mammography screening. 1 year F/U This examination should not preclude the clinical evaluation of a suspicious palpable abnormality. This patient's information was entered into a reminder system with a target due date for their next mammogram.
== END 2023-11-11 08:28 | disposition home or self-care (01) ==
LOC: HO.MAMMO 08:27
PROVIDERS: PCP Internal Medicine; Visit Provider Internal Medicine
DX: Z12.31 Encounter for screening mammogram for malignant neoplasm of breast (principal); Z13.820 Encounter for screening for osteoporosis; Z78.0 Asymptomatic menopausal state
CPT/HCPCS: 77063; 77067; 77080

== ENCOUNTER → 2023-11-11 09:15 | Outpatient (BNV) | payer OTHER, SELFPAY | PROVIDERS: PCP Internal Medicine; Visit Provider Radiology Diagnostic Radiology | DX: Z12.31 Encounter for screening mammogram for malignant neoplasm of breast (principal) | CPT/HCPCS: 77063; 77067 ==

== ENCOUNTER 2023-12-28 08:11 | Outpatient (AMB) | payer OTHER, SELFPAY ==
--- NOTE | 2023-12-28 08:12 | A.OFFPC_ITS ---
Vital Signs 12/28/23 08:13 12/28/23 08:34 Height 5 ft 4 in Weight 136 lb BMI 23.3 BP 142/80 H 138/80 Blood Pressure Location Lt brachial Lt brachial Position Sitting Sitting Intake Visit Reasons: Annual PE Intake Note: Patient here for an annual physical exam Fixed Wing Aircraft Crew Chief Required: No Accompanied by: Self / Same As Patient Allergies meloxicam [MELOXICAM] Allergy (Intermediate, Verified 12/28/23 08:27) NAUSEA & VOMITING, GI UPSET Penicillins [PENICILLINS] Allergy (Intermediate, Verified 12/28/23 08:27) RASH prednisone [PREDNISONE] Allergy (Intermediate, Verified 12/28/23 08:27) Hives, Rash Medication List - Last Reconciled 12/28/23 by Erica Corral MD acetaminophen ER 650 mg PO Q8H PRN 30 days diclofenac sodium 3% 1 appl topical BID fluticasone propionate 50 mcg/actuation (Flonase Allergy Relief) 1 spray intranasal DAILY omeprazole 40 mg PO DAILY 90 days tramadol 50 mg PO BID PRN 30 days Ventolin HFA 90 mcg/actuation (albuterol sulfate) 2 puffs PO Q6H PRN NS Tobacco use date assessed: 10/12/23 Dental Screening Dental Screen Date: 10/12/23 HPI HPI Comments History of Present Illness Details This is a 53-year-old female with mild recurrent major depression and opioid dependence that comes for her physical exam. Depression in remission. On tramadol for her opiate dependence and signed pain management contract today. She admits that she gets oxycodone from brother occasionally and I told her that she needed to stop doing that. Mammogram done 2023 was normal. Last Pap smear as per patient was over 4 years ago and will be referred. Does not has me nses for over 5 years. DEXA scan shows osteopenia and calcium with vitamin-D will be started. Has never had a colonoscopy and declines Cologuard because she does not understand it. Will be refer through open access. Will be referred to OBGYN. Complains of left hand pain more prominent in ring finger. She also has microscopic hematuria an ultrasound renal was ordered. She said hematuria is not a new thing for her. She has lumbar spondylosis and cervical spondylosis and this is why she is on tramadol and other diffuse joint pain and will be referred to rheumatology. Currently seen pain management which recommended TENS unit which was not approved by insurance and I will try to order it again. Declines Tdap vaccine today. [facility] Medical History (Updated 12/28/23 @ 09:32 by Erica Corral MD) Hemorrhoids with complication Mild recurrent major depression HSV-2 (herpes simplex virus 2) infection Mild persistent asthma, uncomplicated Migraines RAVI (generalized anxiety disorder) Mild single current episode of major depressive disorder Scoliosis Back pain Polyarthralgia Constipation by delayed colonic transit Nausea GERD (gastroesophageal reflux disease) Surgical History History of mammogram History of tubal ligation History of left knee surgery Amputated toe History of splenectomy Family History Father Hypertension Diabetes CVD (cardiovascular disease) Mother Hypertension Social History Housing: Apartment Alcohol intake: never Patient Tobacco Use Status: Never used Tobacco e-Cigarette/Vaping Use: Never Used Second Hand Smoke Exposure: No service: No Current occupational status: unemployed Cognitive needs: No Hearing needs: No Vision needs: No Questionnaire Thrive Questionnaire Date Thrive assessed: 10/12/23 RAVI-7 AMB Questionnaire RAVI-7 Date RAVI - 7 assessed: 10/12/23 Source: Developed by Drs. Bucky Sarmiento, Della Tsang, Rodney Hernandez and colleagues, with an educational anjum from [employer]. Review of Systems Const All systems reviewed & are unremarkable except as noted in HPI and below ENT Reports neck pain Card Denies chest pain at rest, Denies chest pain with activity, Denies edema, Denies irregular heart rhythm, Denies claudication, Denies dyspnea, Denies dyspnea on exertion, Denies orthopnea, Denies paroxysmal nocturnal dyspnea and Denies slow heart rate Resp Denies cough, Denies dyspnea and Denies dyspnea on exertion GI Denies abdominal pain, Denies change in bowel habits, Denies excessive flatus, Denies nausea and Denies vomiting Musc Reports back pain, Reports arthralgias and Reports neck pain Physical exam (Primary Care) Vital Signs: Last Vital Signs BP 138/80 12/28/23 08:34 BMI result Body Mass Index 23.3 Tobacco/Smoking Status: Tobacco use Status Tobacco use date assessed 10/12/23 12/28/23 08:19 Patient Tobacco Use Status Never used Tobacco 12/28/23 08:19 e-Cigarette/Vaping Use Never Used 12/28/23 08:19 Thrive Assessment: Date of Thrive Assessment Date Thrive assessed 10/12/23 12/28/23 08:19 HENIL Head: Yes normal to inspection, Yes normocephalic and Yes atraumatic Ears: external ears normal General nose exam: No nasal discharge present Eyes General: appearance normal, both eyes and all related structures Eyelids: Yes eyelids normal Conjunctivae: conjunctivae normal Neck Neck: Yes normal visual inspection and Yes supple Resp Effort & Inspection: normal respiratory effort Auscultation: clear to auscultation bilaterally Cardio Jugular venous distension: no JVD Rate: regular rate Rhythm: regular rhythm Heart sounds: S1 normal heart sound present and S2 normal heart sound present GI Inspection: Yes normal to inspection Palpation (GI): Soft to palpation and nontender Auscultation: normal bowel sounds Skin General skin exam: no rashes or lesions noted Neuro General: no focal motor deficits Extrem General: Yes full ROM Psych Appearance: grossly normal Results AMB Urinalysis, Automated UA Leukoctes 0 Sage/uL Last Edit by AMALIA Loja on 12/28/23 08:55 UA Nitrite Negative Last Edit by AMALIA Loja on 12/28/23 08:55 UA Urobilinogen 0.2 mg/dL Last Edit by AMALIA Loja on 12/28/23 08: 55 UA Protein 0 mg/dL Last Edit by AMALIA Loja on 12/28/23 08:55 UA pH 7.0 Last Edit by AMALIA Loja on 12/28/23 08:55 UA Blood 2 Yuriy/uL Last Edit by AMALIA Loja on 12/28/23 08:55 UA Specific [place] 1.015 Last Edit by AMALIA Loja on 12/28/23 08 :55 UA Ketone Negative Last Edit by AMALIA Loja on 12/28/23 08:55 UA Bilirubin 0 mg/dL Last Edit by AMALIA Loja on 12/28/23 08:55 UA Glucose 0 mg/dL Last Edit by AMALIA Loja on 12/28/23 08:55 Results Reviewed Results Reviewed: Laboratory Last Values Urine pH (Auto) 7.0 12/28/23 08:51 Specific [place] (Auto) 1.015 12/28/23 08:51 Urine Protein (Auto) 0 mg/dL 12/28/23 08:51 Glucose (UA)(Auto) 0 mg/dL 12/28/23 08:51 Urine Ketones (Auto) Negative 12/28/23 08:51 Urine Blood (Auto) 2 Yuriy/uL 12/28/23 08:51 Urine Nitrite (Auto) Negative 12/28/23 08:51 Urine Bilirubin (Auto) 0 mg/dL 12/28/23 08:51 Urine Urobilinogen (Auto) 0.2 mg/dL 12/28/23 08:51 Leukocyte Esterase (Auto) 0 Sage/uL 12/28/23 08:51 Assessment and Plan Assessment & Plan (1) Physical exam: Code(s): Z00.00 - Encounter for general adult medical examination without abnormal findings Plan: Repeat in a year. (2) Microscopic hematuria: Code(s): R31.29 - Other microscopic hematuria Plan: Ultrasound renal ordered. (3) Left hand pain: Code(s): M79.642 - Pain in left hand Plan: X-ray ordered. (4) Osteopenia: Code(s): M85.80 - Other specified disorders of bone density and structure, unspecified site Qualifiers: Osteopenia location: unspecified Qualified Code(s): M85.80 - Other specified disorders of bone density and structure, unspecified site Plan: Start calcium with vitamin-D. Repeat DEXA scan in 2025. (5) Opioid dependence: Comment: Pain contract signed 12/28/23 Code(s): F11.20 - Opioid dependence, uncomplicated Qualifiers: Substance use status: uncomplicated Qualified Code(s): F11.20 - Opioid dependence, uncomplicated Plan: Continue tramadol. Patient signed pain management contract today and did a urine toxicology. Patient is aware that she can not use any other controlled s ubstance unless she let me know. (6) Mild recurrent major depression: Code(s): F33.0 - Major depressive disorder, recurrent, mild Plan: In remission. Orders: Orders XR hand LT 2V Today M79.642 - Pain in left hand AMB Urinalysis Automated Today R31.9 - Hematuria, unspecified US renal BI Today R31.29 - Other microscopic hematuria Referrals Open Access Screening Colonoscopy Referral Z12.11 - Encounter for screening for malignant neoplasm of colon Rheumatology Referral M47.812 - Spondylosis without myelopathy or radiculopathy, cervical region, M47.816 - Spondylosis without myelopathy or radiculopathy, lumbar region WET PAN OPERATOR Referral Z12.4 - Encounter for screening for malignant neoplasm of cervix Medications: New TENS units (TENS 502 device) As directed 1 ea 0RF M47.812 - Spondylosis without myelopathy or radiculopathy, cervical region, M47.816 - Spondylosis without myelopathy or radiculopathy, lumbar region calcium carbonate-vitamin D3 500 mg-10 mcg (400 unit) (Oyster Shell Calcium- Vitamin D3) 2 tabs PO DAILY 180 tabs 3RF 90 days M85.80 - Other specified disorders of bone density and structure, unspecified site Review Patient declined Colon Cancer Screen Lab: 12/28/23 Declined TDap/Td: 12/27/24 Coding Level of Care Code Est Pt Level 4 (83891) Est Pt Prev Care 40-64y(29611) Diagnoses Physical exam Z00.00 Microscopic hematuria R31.29 Left hand pain M79.642 Osteopenia, unspecified location M85.80 Osteopenia location: unspecified Uncomplicated opioid dependence F11.20 Substance use status: uncomplicated Mild recurrent major depression F33.0 Time Spent (min) 40
[2023-12-28 08:13] VITALS: BP 142/80; BMI 23.3
[2023-12-28 08:34] VITALS: BP 138/80
== END 2023-12-28 08:57 | disposition home or self-care (01) ==
PROVIDERS: PCP Internal Medicine; Visit Provider Internal Medicine
DX: Z00.00 Encounter for general adult medical examination without abnormal findings (principal); F11.20 Opioid dependence, uncomplicated; F33.0 Major depressive disorder, recurrent, mild; R31.29 Other microscopic hematuria; M79.642 Pain in left hand; M85.80 Other specified disorders of bone density and structure, unspecified site
CPT/HCPCS: 81003; 99214; 99396

== ENCOUNTER 2023-12-28 09:01 | Outpatient (REF) | payer OTHER, SELFPAY ==
--- NOTE | ~2023-12-28 | XR_ITS ---
EXAMINATION: XR HAND, LEFT CLINICAL INFORMATION: Pain left hand. COMPARISON: None available. TECHNIQUE: PA, lateral, and oblique views of the left hand. FINDINGS: Radiopaque marker placed by technologist to indicate the area of concern as indicated by the patient at the fifth digit PIP joint region. There is soft tissue swelling in the region of the fifth digit PIP joint. Mild degenerative changes in the first carpometacarpal joint with joint space narrowing and hypertrophic change. Mild degenerative changes in multiple IP joints, more prominent in the distal IP joints. No acute displaced fracture appreciated. XR/XR hand LT 2V IMPRESSION: 1. Soft tissue swelling in the region of the fifth digit PIP joint. 2. Mild degenerative changes first carpometacarpal joint multiple IP joints. 3. No acute displaced fracture. Recommend follow-up imaging in 10-14 days if fracture is suspected.
== END 2023-12-28 09:02 | disposition home or self-care (01) ==
LOC: HO.XRAY 09:01
PROVIDERS: PCP Internal Medicine; Visit Provider Internal Medicine
DX: M79.642 Pain in left hand (principal)
CPT/HCPCS: 73120

== ENCOUNTER 2024-01-14 10:07 | Outpatient (REF) | payer OTHER, SELFPAY ==
--- NOTE | ~2024-01-14 | US_ITS ---
EXAMINATION: US RETROPERITONEAL LIMITED (RENAL ONLY) CLINICAL INFORMATION: Other microscopic hematuria. COMPARISON: X-ray abdomen 10/23/2019 and 12/06/2018. X-ray KUB 12/31/2015. TECHNIQUE: Real-time imaging of the kidneys. Limited visualization due to bowel gas. FINDINGS: RIGHT KIDNEY: 10.0 x 3.4 x 4.9 cm (SAG x AP x TRV). The kidney is normal in size, contour, and echogenicity. Renal cortical thickness is normal. No renal calculi or hydronephrosis. Multiple tiny renal echogenic foci may represent vascular calcifications, artifact or tiny nonobstructive renal calculi. No hydronephrosis. 1.9 x 1.4 x 1.5 cm right renal upper pole cyst with benign features. There is no indication for follow-up imaging. LEFT KIDNEY: 9.8 x 5.2 x 4.9 cm (SAG x AP x TRV). Multiple tiny renal echogenic foci may represent vascular calcifications, artifact or tiny nonobstructive renal calculi.. Mild fullness left renal collecting system. Limited visualization. Renal cortical thickness is normal. US/US renal BI IMPRESSION: 1. Multiple tiny bilateral renal echogenic foci may represent vascular calcifications, artifact or tiny nonobstructive renal calculi. 2. Mild fullness left renal collecting system. Limited visualization. 3. A 1.9 cm right renal upper pole cyst with benign features. There is no indication for follow up imaging.
== END 2024-01-14 10:08 | disposition home or self-care (01) ==
LOC: HO.US 10:07
PROVIDERS: PCP Internal Medicine; Visit Provider Internal Medicine
DX: R31.29 Other microscopic hematuria (principal)
CPT/HCPCS: 76775

== ENCOUNTER 2024-02-29 13:41 | Emergency (ER) | payer OTHER, SELFPAY ==
--- NOTE | ~2024-02-29 | XR_ITS ---
EXAMINATION: XR CHEST CLINICAL INFORMATION: Chest pain COMPARISON: Chest radiograph from 05/11/2022 TECHNIQUE: 2 views of the chest were obtained. FINDINGS: No focal consolidation. No pneumothorax. Trachea is midline. Cardiac mediastinal silhouette is not enlarged. Osseous structures are intact. Soft tissues are unremarkable XR/XR chest 2V IMPRESSION: No acute cardiopulmonary process. Electronically signed by: Fahad Ramachandran MD 02/29/2024 03:17 PM EDT
--- NOTE | 2024-02-29 14:09 | ECG_ITS ---
Test Reason : PALPATIONS Blood Pressure : / mmHG Vent. Rate : 073 BPM Atrial Rate : 073 BPM P-R Int : 160 ms QRS Dur : 072 ms QT Int : 398 ms P-R-T Axes : 049 012 023 degrees QTc Int : 438 ms Normal sinus rhythm Normal ECG When compared with ECG of 04-DEC-2011 10:42, No significant change was found Referred By: Arpita Villa Electronically Signed By:AJ MCKEON
--- NOTE | 2024-02-29 14:09 | ED.GENADULT ---
HPI - General Adult General Chief complaint: General Medical Stated complaint: Weakness, fever Time Seen by Provider: 02/29/24 17:25 Source: patient, RN notes reviewed, old records reviewed and tester compressed gases Mode of arrival: ambulatory Limitations: language barrier History of Present Illness ED Provider: Arnaud HPI narrative: 53-year-old female with past medical history significant for opioid dependence, osteopenia, fibromyalgia, GERD, anxiety presents for evaluation of multiple complaints. Patient reports that she stopped taking her tramadol and Percocet that was not prescribed to her 8 days ago abruptly She decided that she did not want to be on all of her medications anymore Since stopping those medications she reports increased weakness, fatigue, nausea, diarrhea, chills She also complains of ?pain all over. ? She states that her chest feels ?agitated. ? When asked to elaborate on this she reports that she feels palpitations Denies any chest pain She complains of left shoulder and lower back pain denies any recent falls but admits that she has a history of arthritis in these areas Related Data Previous Rx's ?Medication ?Instructions ?Recorded diclofenac sodium 3 % topical gel 1 appl topical BID #100 grams 10/29/23 TENS units (TENS 502 device) #1 ea 12/28/23 calcium carbonate 500 mg-vitamin 2 tab PO DAILY 90 days #180 tabs 12/28/23 D3 10 mcg (400 unit) tablet (Oyster Shell Calcium-Vitamin D3) Ventolin HFA 90 mcg/actuation 2 puff PO Q6H PRN for wheezing #18 01/26/24 aerosol inhaler (albuterol sulfate) ea acetaminophen 650 mg 650 mg PO Q8H PRN fever or pain 30 01/28/24 tablet,extended release days #90 tabs fluticasone propionate 50 1 spray intranasal DAILY #9.9 mL 01/28/24 mcg/actuation nasal spray,suspension (Flonase Allergy Relief) omeprazole 40 mg capsule,delayed 40 mg PO DAILY 90 days #90 caps 01/28/24 release tramadol 50 mg tablet 50 mg PO BID PRN pain 30 days #45 01/29/24 tabs hydroxyzine HCl 25 mg tablet 25 mg PO TID PRN anxiety #20 tabs 02/29/24 ondansetron 4 mg disintegrating 4 mg PO Q8H PRN nausea and 02/29/24 tablet vomiting #20 tabs Allergies Allergy/AdvReac Type Severity Reaction Status Date / Time meloxicam [MELOXICAM] Allergy Intermediate NAUSEA & Verified 02/29/24 14:13 VOMITING, GI UPSET Penicillins [PENICILLINS] Allergy Intermediate RASH Verified 02/29/24 14:13 prednisone [PREDNISONE] Allergy Intermediate Hives, Rash Verified 02/29/24 14:13 Review of Systems Constitutional: Constitutional: Denies body ache(s), Denies chills, Denies fever(s), Reports lethargy, Reports malaise and Reports weakness Eyes: Eyes: Denies blurry vision ENT: Denies vertigo and Denies dizziness Cardiovascular: Cardiovascular: Denies chest pain, Reports rapid heart rate, Reports palpitations and Denies dyspnea Respiratory: Respiratory: Denies cough and Denies dyspnea Gastrointestinal: Gastrointestinal: Denies abdominal pain, Reports diarrhea, Reports nausea and Reports vomiting Musculoskeletal: Musculoskeletal: Reports back pain and Reports myalgias Integumentary/Breasts: Skin/Breast: Denies rash Neurologic: Denies vertigo, Denies dizziness and Reports weakness Endocrine: Endocrine: Reports palpitations PMFSH Past Medical History Medical History Hemorrhoids with complication Mild recurrent major depression HSV-2 (herpes simplex virus 2) infection Mild persistent asthma, uncomplicated Migraines RAVI (generalized anxiety disorder) Mild single current episode of major depressive disorder Scoliosis Back pain Polyarthralgia Constipation by delayed colonic transit Nausea GERD (gastroesophageal reflux disease) Surgical History History of mammogram History of tubal ligation History of left knee surgery Amputated toe History of splenectomy Family History Family History Father Hypertension Diabetes CVD (cardiovascular disease) Mother Hypertension Social History Social History Housing: Apartment Alcohol intake: never Patient Tobacco Use Status: Never used Tobacco e-Cigarette/Vaping Use: Never Used Second Hand Smoke Exposure: No Advance Directives: No Advance Directives Information Provided: No service: No Current occupational status: unemployed Cognitive needs: No Hearing needs: No Vision needs: No Physical Exam ED Vital Signs: Vital Signs - 24 hr 02/29/24 14:11 02/29/24 16:55 Temperature 97.3 F 99.2 F Pulse Rate 82 70 Respiratory Rate 16 16 Blood Pressure 127/84 134/67 Pulse Oximetry 100 100 Oxygen Delivery Method Room Air Room Air BMI result Body Mass Index 22.7 Const General: healthy appearing, comfortable, no acute distress, alert and awake Nutritional Appearance: well nourished Orientation/consciousness: patient oriented x3 HENMT Head: Yes normocephalic and Yes atraumatic Eyes Eyelids: Yes eyelids normal Conjunctivae: conjunctivae normal Sclerae: sclerae normal Corneas: corneas normal Pupils: Equal, round and reactive pupils present EOM: EOMs intact bilaterally Neck Neck: Yes full ROM Resp Effort & Inspection: normal respiratory effort, able to speak in complete sentences, no audible wheezes and not labored Auscultation: clear to auscultation bilaterally Cardio Rate: regular rate Rhythm: regular rhythm GI Inspection: No distended Palpation (GI): Soft to palpation, not firm, nontender, no guarding and not rigid Skin General skin exam: elasticity normal Neuro General: patient oriented x3 Cranial nerves: Yes Equal, round and reactive pupils present and Yes Bilaterally intact EOM present Cognition (Neuro): normal cognition Extrem Other: Moving all extremities well without any obvious deformities Course Course Course Narrative: This is a Rapid Medical Examination (RME) performed by Linus Villa PA-C in triage. Full HPI, ROS, assessment and treatment plan per primary provider in the Main ED. 53 yo [place]ammarinese-speaking female with a history of opioid use disorder with chronic pain syndrome, fibromyalgia, gastritis, anxiety, GERD, kidney stones who presents to the ER for evaluation of generalized weakness, subjective fever and chills, cardiac ?agitation,? palpitations, extreme fatigue after stopping her tramadol cold turkey 8 days ago. In addition to this she was also taking Percocet from her mother and brother. She states she was sick of taking so many medications so she stopped them. Vital signs are stable in triage. Plan: EKG, chest x-ray, viral studies, lab workup Medical Decision Making Medical Decision Making MDM Narrative: 53-year-old female presents for evaluation of multiple complaints including palpitations, fatigue, weakness, nausea and poor appetite. Her symptoms are consistent with opiate withdrawal as she has been taking tramadol 50 mg every 4-6 hours as well as Percocet that is not prescribed to her, unclear how much of the she was taking. Her last use of opiates was about 8 days ago per her report. She had a workup that is significant for a mild anemia consistent with her baseline. She has no other hematology abnormality. No left shift her chemistries are significant for a chloride that is slightly elevated to 109 which may be related to poor intake, troponin is negative, other electrolytes are within normal limits. She had an EKG in his normal sinus rhythm with no ST changes. Nonischemic EKG, unchanged from her previous, lastly she had a chest x-ray that shows no acute pathology. She also has a reassuring physical exam, her symptoms are consistent with opiate withdrawal, I discussed discussing with the substance abuse team and the patient declines. We will prescribe her Zofran and hydroxyzine for symptomatic care. She is stable for discharge at this time Differential Diagnosis Differential Diagnoses: The differential diagnosis associated with the presentation includes Opiate withdrawal Palpitations Arrhythmia ACS less likely Gastroenteritis Arthritis Lab Data MDM Lab Attestation statement: I reviewed the patient's lab results. 02/29/24 14:28 02/29/24 14:28 Labs: Lab Results 02/29/24 02/29/24 Range/Units 14:28 15:18 WBC 8.2 (4.8-10.8) X10*3/uL RBC 3.87 L (4.20-5.50) X10*6/uL Hgb 11.8 L (12.0-16.0) g/dl Hct 35.3 L (37.0-47.0) % MCV 91.2 (80.0-98.0) fL MCH 30.5 (27.0-33.0) pg MCHC 33.4 (31.0-35.0) g/dl RDW 12.0 (11.0-16.0) % Plt Count 382 (160-400) X10*3/uL MPV 10.1 (9.4-12.3) fL Immature Gran % (Auto) 0.1 (0.0-0.4) % Neut % (Auto) 57.2 (45-73) % Lymph % (Auto) 36.1 (20-40) % [place] % (Auto) 5.7 (2-11) % Eos % (Auto) 0.2 (0-4) % Baso % (Auto) 0.7 (0-2) % Lymph # (Auto) 3.0 (1.2-4.9) X10*3/uL [place] # (Auto) 0.5 (0.1-1.2) X10*3/uL Eos # (Auto) 0.0 (0.0-0.4) X10*3/uL Baso # (Auto) 0.1 (0.0-0.2) X10*3/uL Abs Immat Gran (auto) 0.01 (0.00-0.03) X10*3/uL Absolute Neuts (auto) 4.7 (2.0-8.3) x10*3/uL Absolute Nucleated RBC 0.000 (0.0-0.012) X10*3/uL Nucleated RBC % (auto) 0.0 (0.0-0.2) /100WBC Sodium 142 (135-145) mmol/L Potassium 3.4 (3.3-5.1) mmol/L Chloride 109 H (96-108) mmol/L Carbon Dioxide 29 (22-29) mmol/L Anion Gap 7 L (12-20) BUN 11 (9-16) mg/dL Creatinine 0.87 (0.5-1.4) mg/dL Estim Creat Clear Calc 63.8 Estimated GFR > 60 Random Glucose 96 (60-115) mg/dL Calcium 9.3 (8.4-10.2) mg/dL Magnesium 2.1 (1.6-2.6) mg/dL Total Bilirubin 0.9 (0.0-1.0) mg/dL Direct Bilirubin 0.3 (0.0-0.5) mg/dL AST 15 (5-31) U/L ALT 12 (0-31) U/L Alkaline Phosphatase 90 (39-117) U/L Troponin I High Sens < 2.7 (<3.5-17.0) ng/L Total Protein 7.0 (6.5-8.0) g/dL Albumin 4.0 (3.5-5.0) g/dL TSH 0.42 (0.32-4.0) uIU/mL Urine Color Yellow Urine Appearance Clear Urine pH 5.5 (5.0-9.0) Ur Specific [place] 1.010 (1.005-1.025) Urine Protein Negative (Neg-Trace) mg/dL Urine Glucose (UA) Negative (Negative) mg/dL Urine Ketones Negative (Negative) mg/dL Urine Blood Moderate (2+) H (Negative) Urine Nitrite Negative (Negative) Ur Leukocyte Esterase Negative (Negative) Urine RBC 6-10 H (0-2) /HPF Urine WBC 0-5 (0-5) /HPF Ur Squamous Epith Cells 0-2 (0-2) /HPF Urine Bacteria None Seen (None Seen) Hyaline Casts 0-2 (0-2) /LPF Urine Opiates Screen Not Detected (Not Detect) Ur Buprenorphine Scrn Not Detected (Not Detect) ng/mL Ur Oxycodone Screen Not Detected (Not Detect) ng/mL Urine Methadone Screen Not Detected (Not Detect) ng/mL Urine Fentanyl Screen Not Detected (Not Detect) Ur Barbiturates Screen Not Detected (Not Detect) Ur Phencyclidine Scrn Not Detected (Not Detect) Ur Amphetamines Screen Not Detected (Not Detect) U Benzodiazepines Scrn Not Detected (Not Detect) Urine Cocaine Screen Not Detected (Not Detect) U Marijuana (THC) Screen Not Detected (Not Detect) Ethyl Alcohol < 10 mg/dL Influenza Type A (PCR) NEGATIVE (Negative) Influenza Type B (PCR) NEGATIVE (Negative) RSV RNA Qual (PCR) NEGATIVE (Negative) SARS-CoV-2 RNA (RT-PCR) NEGATIVE (Negative) Independent Interpretation I performed an independent interpretation of an: EKG Discharge Plan Discharge Clinical Impression: Weakness Patient Disposition: Home, Self-Care Instructions: Opioid Withdrawal (ED) Additional Instructions: Your workup in the ER today was reassuring. Your symptoms may be related to sudden discontinuation of your opiate medications You may use Zofran as needed for nausea/vomiting. Use hydroxyzine as needed for anxiety. This may make you drowsy, so you may take it prior to going to bed Follow-up with your primary doctor, return for new or worsening symptoms Prescriptions: New ondansetron 4 mg tablet,disintegrating 4 mg PO Q8H PRN (Reason: nausea and vomiting) Qty: 20 0RF hydroxyzine HCl 25 mg tablet 25 mg PO TID PRN (Reason: anxiety) Qty: 20 0RF No Action diclofenac sodium 3 % gel 1 appl topical BID Qty: 100 0RF Rx Instructions: apply to most painful area twice daily as needed for pain albuterol sulfate [Ventolin HFA] 90 mcg/actuation HFA aerosol inhaler 2 puff PO Q6H PRN (Reason: for wheezing) Qty: 18 0RF acetaminophen 650 mg tablet extended release 650 mg PO Q8H PRN (Reason: fever or pain) 30 Days Qty: 90 6RF fluticasone propionate [Flonase Allergy Relief] 50 mcg/actuation spray,suspension 1 spray intranasal DAILY Qty: 9.9 1RF Rx Instructions: administer into each nostril omeprazole 40 mg capsule,delayed release(DR/EC) 40 mg PO DAILY 90 Days Qty: 90 3RF tramadol 50 mg tablet 50 mg PO BID PRN (Reason: pain) 30 Days Qty: 45 0RF (DME) TENS 502 Device See Rx Instructions .Route Qty: 1 0RF Rx Instructions: As directed calcium carbonate-vitamin D3 [Oyster Shell Calcium-Vit D3] 500 mg-10 mcg (400 unit) tablet 2 tab PO DAILY 90 Days Qty: 180 3RF Print Language: Sammarinese
[2024-02-29 14:11] VITALS: BP 127/84; PULSE 82; RESP 16; TEMP 36.3; O2SAT 100; BMI 22.7
[2024-02-29 14:37] LABS: MANUAL DIFF FLAG NO
[2024-02-29 14:43] LABS: Basophils Absolute Auto 0.1 X10*3/uL (0.0-0.2); Basophils Percent Auto 0.7 % (0-2); Eosinophils Percent Auto 0.2 % (0-4); Hematocrit 35.3 % (37.0-47.0); Hemoglobin 11.8 g/dl (12.0-16.0); Imm Gran Abs Auto 0.01 X10*3/uL (0.00-0.03); Imm Gran Pct Auto 0.1 % (0.0-0.4); Lymphocytes Percent Auto 36.1 % (20-40); Mean Corpuscular HGB Conc 33.4 g/dl (31.0-35.0); Mean Corpuscular Hemoglobin 30.5 pg (27.0-33.0); Mean Corpuscular Volume 91.2 fL (80.0-98.0); Mean Platelet Volume 10.1 fL (9.4-12.3); Monocytes Absolute Auto 0.5 X10*3/uL (0.1-1.2); Monocytes Percent Auto 5.7 % (2-11); Neutrophils Absolute Auto 4.7 x10*3/uL (2.0-8.3); Neutrophils Percent Auto 57.2 % (45-73); Platelet Count 382 X10*3/uL (160-400); Red Blood Count 3.87 X10*6/uL (4.20-5.50); White Blood Count 8.2 X10*3/uL (4.8-10.8)
[2024-02-29 14:56] LABS: Alanine Aminotransferase 12 U/L (0-31); Alkaline Phosphatase 90 U/L (39-117); Anion Gap 7 (12-20); Aspartate Amino Transferase 15 U/L (5-31); Bilirubin Direct 0.3 mg/dL (0.0-0.5); Bilirubin Total 0.9 mg/dL (0.0-1.0); Blood Urea Nitrogen 11 mg/dL (9-16); Calcium 9.3 mg/dL (8.4-10.2); Carbon Dioxide 29 mmol/L (22-29); Chloride 109 mmol/L (96-108); Creatinine Clr Calc Pharmacy 63.8; Estimated Glomerular Filt Rate > 60; Glucose Random 96 mg/dL (60-115); Magnesium 2.1 mg/dL (1.6-2.6); Potassium 3.4 mmol/L (3.3-5.1); Sodium 142 mmol/L (135-145)
[2024-02-29 15:01] LABS: Ethanol < 10 mg/dL; Troponin-I High Sensitivity < 2.7 ng/L (<3.5-17.0)
[2024-02-29 15:15] LABS: TSH reflex Free T4 0.42 uIU/mL (0.32-4.0)
[2024-02-29 15:23] LABS: Influenza A PCR NEGATIVE (Negative); Influenza B PCR NEGATIVE (Negative); Resp Syncy Virus RNA Qual PCR NEGATIVE (Negative); SARS COV2 PCR INHOUSE NEGATIVE (Negative)
[2024-02-29 15:36] LABS: Appearance Urine Clear; Color Urine Yellow; Glucose Urine UA Negative (Negative); Leukocyte Esterase Urine Negative (Negative); Nitrite Urine Negative (Negative); PH 5.5 (5.0-9.0); UMIC TRIGGER UACC YES; Urine Blood Moderate (2+) (Negative); Urine Ketones Negative (Negative); Urine Protein Negative (Neg-Trace)
[2024-02-29 15:50] LABS: Amphetamine Screen Urine Not Detected (Not Detect); Barbiturates, Urine Not Detected (Not Detect); Benzodiazepines Screen Urine Not Detected (Not Detect); Buprenorphine Scr Not Detected (Not Detect); Cannabinoid Screen Urine Not Detected (Not Detect); Cocaine Screen Urine Not Detected (Not Detect); Fentanyl, urine Not Detected (Not Detect); Methadone Screen, Urine Not Detected (Not Detect); Opiate Screen Urine Not Detected (Not Detect); Oxycodone Screen Urine Not Detected (Not Detect); Phencyclidine Screen Urine Not Detected (Not Detect)
[2024-02-29 15:56] LABS: Bacteria Urine None Seen (None Seen); Hyaline Casts Urine 0-2 /LPF (0-2); Squamous Epithelial Cell Urine 0-2 /HPF (0-2); WBC Urine 0-5 /HPF (0-5)
[2024-02-29 16:55] VITALS: BP 134/67; PULSE 70; RESP 16; TEMP 37.3; O2SAT 100
[2024-02-29 18:36] VITALS: BP 134/67; PULSE 70; RESP 16; TEMP 37.3; O2SAT 100
== END 2024-02-29 18:38 | disposition home or self-care (01) ==
PROVIDERS: Physician Assistant; Emergency Provider Emergency Medicine; PCP Internal Medicine
DX: R53.1 Weakness (principal); R50.9 Fever, unspecified; R11.0 Nausea; R00.2 Palpitations; Z91.148 Patient's other noncompliance with medication regimen for other reason; Z03.818 Encounter for observation for suspected exposure to other biological agents ruled out; Z79.899 Other long term (current) drug therapy
CPT/HCPCS: 0241U; 36415; 71046; 80048; 80076; 80307; 81001; 83735; 84443; 84484; 85025; 93005; 99283

== ENCOUNTER 2024-03-29 08:28 | Outpatient (AMB) | payer OTHER, SELFPAY ==
--- NOTE | 2024-03-29 08:36 | MHC.OFFVIS ---
Intake Visit Reasons: bilateral nephrolithiasis Intake Note: New Patient presents for initial visit for bilateral nephrolithiasis Urology Medications: none Blood Thinner: none Medical Scribe Required: Yes Medical Scribe Services: Medical Scribe Present Medical Scribe Name: AMADO LYNCHJANIE Accompanied by: Self / Same As Patient Allergies meloxicam [MELOXICAM] Allergy (Intermediate, Verified 03/29/24 09:03) NAUSEA & VOMITING, GI UPSET Penicillins [PENICILLINS] Allergy (Intermediate, Verified 03/29/24 09:03) RASH prednisone [PREDNISONE] Allergy (Intermediate, Verified 03/29/24 09:03) Hives, Rash Medication List - Last Reconciled 03/29/24 by GERSON Booker acetaminophen ER 650 mg PO Q8H PRN 30 days bisacodyl (Dulcolax (bisacodyl)) 20 mg (4 x 5 mg) PO ONCE 1 day calcium carbonate-vitamin D3 500 mg-10 mcg (400 unit) (Oyster Shell Calcium-Vitamin D3) 2 tabs PO DAILY 90 days diclofenac sodium 3% 1 appl topical BID fluticasone propionate 50 mcg/actuation (Flonase Allergy Relief) 1 spray intranasal DAILY omeprazole 40 mg PO DAILY 90 days polyethylene glycol 3350 (Miralax) 238 grams PO ONCE 1 day TENS units (TENS 502 device) As directed tramadol 50 mg PO BID PRN 30 days Ventolin HFA 90 mcg/actuation (albuterol sulfate) 2 puffs PO Q6H PRN NS HPI Comments Details: Risa is a very pleasant 53-year-old Maltese-speaking female patient of Dr. Borjas. She has a past medical history of hemorrhoids, recurrent major depression, herpes simplex virus to infection, mild persistent asthma, migraines, anxiety, scoliosis, polyarthralgia, constipation, nausea, and GERD. She presents to the office today as a new patient for renal cysts. In discussion with the patient today she reports a longstanding history of renal cyst. She reports her main concern his chronic ongoing pain she experiences daily that she is unable to sleep. She reports pain has been chronic for many years and follows up with her PCP as well as pain management and is currently awaiting approval of further imaging for further assessment evaluation. Most recent renal imaging results reviewed with the patient today. 02/04 right kidney normal in size, contour, and echogenicity. Bilateral kidneys with no renal calculi or hydronephrosis. Bilateral multiple tiny renal echogenic foci. Right upper renal pole cysts measuring a proximally 1.9 cm. That requires no follow-up imaging per radiology report. In office urinalysis results reviewed with the patient today. 2+ microscopic hematuria. When asked she denies any previous history of nicotine dependence and or known workplace chemical exposures. We discussed at length potential causes of microscopic hematuria. We discussed reasons for blood in the urine may include but are not limited to kidney stones, cancer in the urinary tract, kidney stone disease or inflammatory conditions of the urinary tract. We discussed further treatment options of microscopic hematuria to include further workup with urine cytology as well as in office cystoscopy versus surveillance monitoring. Risks and benefits of these interventions were discussed. She otherwise denies any bothersome urinary issues. She denies urinary urgency, urinary frequency, incontinence, nocturia, hematuria, dysuria, foul smelling urine, changes to urinary stream, fever, and or chills. She is happy with her current voiding parameters. [facility] Medical History Hemorrhoids with complication Mild recurrent major depression HSV-2 (herpes simplex virus 2) infection Mild persistent asthma, uncomplicated Migraines RAVI (generalized anxiety disorder) Mild single current episode of major depressive disorder Scoliosis Back pain Polyarthralgia Constipation by delayed colonic transit Nausea GERD (gastroesophageal reflux disease) Surgical History History of mammogram History of tubal ligation History of left knee surgery Amputated toe History of splenectomy Family History Father Hypertension Diabetes CVD (cardiovascular disease) Mother Hypertension Social History Housing: Apartment Alcohol intake: never Patient Tobacco Use Status: Never used Tobacco e-Cigarette/Vaping Use: Never Used Second Hand Smoke Exposure: No service: No Current occupational status: unemployed Cognitive needs: No Hearing needs: No Vision needs: No Review of Systems Const All systems reviewed & are unremarkable except as noted in HPI and below Physical Exam Const General: cooperative, comfortable, no acute distress, well developed, alert and awake Orientation/consciousness: patient oriented x3 Limitations: no limitations HEENT Head: Yes normal to inspection, Yes normocephalic and Yes atraumatic Ears: hearing grossly normal bilaterally Eyes General: appearance normal, both eyes and all related structures Neck Neck: Yes normal visual inspection and Yes trachea midline Chest Chest palpation & inspection: normal inspection of the chest Resp Effort & Inspection: normal respiratory effort and able to speak in complete sentences Cardio Rate: regular rate GI Inspection: Yes normal to inspection General: Yes no CVA tenderness Back/Spine/Pelvis Back: no CVA tenderness Skin General skin exam: no rashes or lesions noted Neuro General: patient oriented x3 Extrem General: Yes normal to inspection Psych Appearance: grossly normal and well kempt Mental Status: mental status grossly normal Speech and movement: Normal speech and movement present and Clear speech present Affect: normal affect Attitude: cooperative Thought process: Normal thought process present Thought content: Normal thought content present Insight: Fair insight present (Psych) Judgement: Fair judgement present (Psych) Results AMB Urinalysis, Automated UA Leukoctes 0 Sage/uL Last Edit by [facility] on 03/29/24 08:51 UA Nitrite Last Edit by [facility] on 03/29/24 08:51 UA Urobilinogen 0.2 mg/dL Last Edit by [facility] on 03/29/24 08:51 UA Protein 0 mg/dL Last Edit by [facility] on 03/29/24 08:51 UA pH 8.0 Last Edit by [facility] on 03/29/24 08:51 UA Blood 80 Yuriy/uL Last Edit by [facility] on 03/29/24 08:51 UA Specific [place] 1.010 Last Edit by [facility] on 03/29/24 08:51 UA Ketone Last Edit by [facility] on 03/29/24 08:51 UA Bilirubin 0 mg/dL Last Edit by [facility] on 03/29/24 08:51 UA Glucose 0 mg/dL Last Edit by [facility] on 03/29/24 08:51 Results Reviewed Results Reviewed: Laboratory Last Values Urine pH (Auto) 8.0 03/29/24 08:40 Specific [place] (Auto) 1.010 03/29/24 08:40 Urine Protein (Auto) 0 mg/dL 03/29/24 08:40 Glucose (UA)(Auto) 0 mg/dL 03/29/24 08:40 Urine Blood (Auto) 80 Yuriy/uL 03/29/24 08:40 Urine Bilirubin (Auto) 0 mg/dL 03/29/24 08:40 Urine Urobilinogen (Auto) 0.2 mg/dL 03/29/24 08:40 Leukocyte Esterase (Auto) 0 Sage/uL 03/29/24 08:40 Date of Service: 01/14/24 EXAMINATION: US RETROPERITONEAL LIMITED (RENAL ONLY) FINDINGS: RIGHT KIDNEY: 10.0 x 3.4 x 4.9 cm (SAG x AP x TRV). The kidney is normal in size, contour, and echogenicity. Renal cortical thickness is normal. No renal calculi or hydronephrosis. Multiple tiny renal echogenic foci may represent vascular calcifications, artifact or tiny nonobstructive renal calculi. No hydronephrosis. 1.9 x 1.4 x 1.5 cm right renal upper pole cyst with benign features. There is no indication for follow-up imaging. LEFT KIDNEY: 9.8 x 5.2 x 4.9 cm (SAG x AP x TRV). Multiple tiny renal echogenic foci may represent vascular calcifications, artifact or tiny nonobstructive renal calculi.. Mild fullness left renal collecting system. Limited visualization. Renal cortical thickness is normal. IMPRESSION: 1. Multiple tiny bilateral renal echogenic foci may represent vascular calcifications, artifact or tiny nonobstructive renal calculi. 2. Mild fullness left renal collecting system. Limited visualization. 3. A 1.9 cm right renal upper pole cyst with benign features. There is no indication for follow up imaging. Assessment & Plan Assessment & Plan (1) Nephrolithiasis: Code(s): N20.0 - Calculus of kidney Category: Medical (2) Microscopic hematuria: Code(s): R31.29 - Other microscopic hematuria Category: Medical Plan In office urinalysis results reviewed with the patient today; as noted above; will send for urine cytology Recent renal imaging results reviewed with the patient today; as noted above. Continue to follow-up with PCP and pain management for ongoing generalized chronic pain. We discussed at length potential causes of microscopic hematuria as well as renal cysts. We discussed further workup to include in office cystoscopy versus surveillance monitoring; risks and benefits of these interventions were discussed. All questions were answered. She currently denies any bothersome urinary issues. She reports be happy with current voiding parameters. Will obtain renal ultrasound in 6 months. Follow-up in 6 months with imaging to be completed prior; or sooner with any issues, concerns, and or questions. Orders: Orders US renal BI 6 Months N20.0 - Calculus of kidney AMB Urinalysis Automated Today Z13.9 - Encounter for screening, unspecified Urine Cytology Today R31.29 - Other microscopic hematuria Patient Instructions: The patient had an opportunity to ask questions regarding the treatment plan. All questions were answered. Physical exam, labs, and imaging were discussed and reviewed in detail. As well as risks, benefits, and discussion of treatment choices. No major barriers to understanding were identified. The patient expressed understanding and agreement with the above treatment plan. The patient was made aware they should contact our office by phone for worsening of their current condition, the appearance of new symptoms, or with any questions or concerns. Compliance is encouraged with any medications and follow up testing that is ordered. It is a privilege to be allowed the opportunity to participate in? your urological care.? Again, if you have any questions or concerns If you have any questions or concerns please do not hesitate to contact me. The office is [phone]. This note is constructed using voice recognition software. While every effort has been made to ensure accuracy grounds person errors may have been included. Yours sincerely, GERSON Booekr Coding Level of Care Code New Pt Level 3 (00949) Diagnoses Nephrolithiasis N20.0 Microscopic hematuria R31.29
== END 2024-03-29 09:07 | disposition home or self-care (01) ==
PROVIDERS: PCP Internal Medicine; Visit Provider Nurse Practitioner Family
DX: N20.0 Calculus of kidney (principal); R31.29 Other microscopic hematuria; Z13.9 Encounter for screening, unspecified
CPT/HCPCS: 99203

== ENCOUNTER 2024-03-29 08:28 | Outpatient (REF) | payer OTHER, SELFPAY ==
[2024-03-29 16:51] LABS: Urine Cytology See Pathology rpt
== END 2024-03-29 08:29 | disposition home or self-care (01) ==
LOC: HO.LNP 08:28
PROVIDERS: PCP Internal Medicine; Visit Provider Nurse Practitioner Family
DX: R31.29 Other microscopic hematuria (principal)
CPT/HCPCS: 81003; 88112; 99202

== ENCOUNTER → 2024-06-23 09:37 | Outpatient (BNV) | payer OTHER, SELFPAY | PROVIDERS: PCP Internal Medicine; Visit Provider Radiology Diagnostic Radiology | DX: M54.16 Radiculopathy, lumbar region (principal) | CPT/HCPCS: 72148 ==

== ENCOUNTER 2024-06-23 09:41 | Outpatient (REF) | payer OTHER, SELFPAY ==
--- NOTE | ~2024-06-23 | MR_ITS ---
EXAMINATION: MR LUMBAR SPINE WITHOUT CONTRAST CLINICAL INFORMATION: Radiculopathy, lumbar region. COMPARISON: None available. TECHNIQUE: MRI of the lumbar spine was obtained using routine sequences without contrast. FINDINGS: Submitted for interpretation on June 27, 2024. Last rib-bearing vertebra labeled T12. Bone marrow inhomogeneity. Multilevel disc desiccation and marginal osteophyte formation, L3 S1. The alignment is normal. The conus medullaris ends at inferior endplate of L1 with normal signal. T12-L1: No disc herniation. No neuroforamina stenosis. L1-2: No disc herniation. No neuroforamina stenosis. L2-3: Broad-based disc bulging. Facet joint and ligamentum flavum hypertrophy. Reduced AP diameter of the thecal sac and the neural foramina. No compression upon neural elements. L3-4: Broad-based disc bulging. Facet joint and ligamentum flavum hypertrophy. Reduced AP diameter of the thecal sac and the neural foramina likely encroaching the neural elements. L4-5: Broad-based disc bulging. Focal hyperintense T2 signal in the posterior disc suggesting annular fissure. Facet joint and ligamentum flavum hypertrophy. Reduced AP diameter of the thecal sac and the neural foramina likely encroaching the neural elements. L5-S1: Broad-based disc bulging. Facet joint and ligamentum flavum hypertrophy. No central spinal canal stenosis. Bilateral neuroforamina stenosis compressing the exiting nerve roots of L5 and to a lesser extent S1. No prevertebral compartment hematoma, mass or fluid collection. There is a 1.3 cm exophytic fluid signal characteristic lesion in the posterior upper pole/midportion junction right kidney. MR/MR lumbar spine wo con IMPRESSION: Multilevel lumbar spondylosis, L3-4 to L5-S1 resulting in central spinal canal stenosis at L4-5 and L3-4 levels and bilateral neuroforamina stenosis L5-S1 and to a lesser extent L4-5 and L3-4 levels compressing the exiting nerve roots of L5-S1 and encroaching the L4 and L3 nerve roots. Electronically signed by: Corona Ramírez MD 06/27/2024 07:46 AM [facility] [place]
== END 2024-06-23 09:42 | disposition home or self-care (01) ==
LOC: HO.MRI 09:41
PROVIDERS: PCP Internal Medicine; Visit Provider Registered Nurse Emergency
DX: M54.16 Radiculopathy, lumbar region (principal); M47.816 Spondylosis without myelopathy or radiculopathy, lumbar region
CPT/HCPCS: 72148

== ENCOUNTER 2024-06-27 09:07 | Emergency (ER) | payer OTHER, SELFPAY ==
--- NOTE | ~2024-06-27 | XR_ITS ---
EXAMINATION: XR LUMBOSACRAL SPINE CLINICAL INFORMATION: pain COMPARISON: X-ray dated October 27, 2023. TECHNIQUE: Three views of the lumbosacral spine. FINDINGS: Endplate sclerosis and decreased intervertebral disc height at L5-S1. Facet joint hypertrophy at L5-S1. No acute cortical disruption. No gross malalignment. Loss of the physiologic lumbar lordosis. Spina bifida occulta, S1. No lytic or blastic lesions. XR/XR lumbar spine 2-3V IMPRESSION: Spondylosis, L5-S1. Electronically signed by: Corona Ramírez MD 06/27/2024 10:32 AM [facility]
[2024-06-27 09:40] VITALS: BP 144/90; PULSE 76; RESP 20; TEMP 36.4; O2SAT 100; BMI 23.0
[2024-06-27 12:02] LABS: Appearance Urine Clear; Color Urine Yellow; Glucose Urine UA Negative (Negative); Leukocyte Esterase Urine Negative (Negative); Nitrite Urine Negative (Negative); PH 6.5 (5.0-9.0); UMIC TRIGGER UACC YES; Urine Blood Small (1+) (Negative); Urine Ketones Negative (Negative); Urine Protein Negative (Neg-Trace)
[2024-06-27 12:05] LABS: Bacteria Urine None Seen (None Seen); Hyaline Casts Urine 0-2 /LPF (0-2); Squamous Epithelial Cell Urine 0-2 /HPF (0-2); WBC Urine 0-5 /HPF (0-5)
== END 2024-06-27 16:32 | disposition left against medical advice (07) ==
PROVIDERS: Emergency Provider Student in an Organized Health Care Education/Training Program; PCP Internal Medicine
DX: M54.50 Low back pain, unspecified (principal); Z53.21 Procedure and treatment not carried out due to patient leaving prior to being seen by health care provider
CPT/HCPCS: 72100; 81001; 81003; 99281; 99282; 99283

== ENCOUNTER → 2024-06-27 10:10 | Outpatient (BNV) | payer OTHER, SELFPAY | PROVIDERS: PCP Internal Medicine; Visit Provider Radiology Diagnostic Radiology | DX: M54.41 Lumbago with sciatica, right side (principal) | CPT/HCPCS: 72100 ==

== ENCOUNTER 2024-06-29 09:31 | Outpatient (AMB) | payer OTHER, SELFPAY ==
[2024-06-29 09:40] VITALS: BP 142/84; BMI 23.7
--- NOTE | 2024-06-29 09:40 | MHC.PC.OV ---
Vital Signs 06/29/24 09:40 Height 5 ft 3 in Weight 134 lb BMI 23.7 BP 142/84 H Blood Pressure Location Lt brachial Position Sitting Intake Visit Reasons: chronic pain Intake Note: Patient here for a follow up right side pain Blue Line Trimmer Required: Yes Blue Line Trimmer Language: Bed And Breakfast Cook Name: Erica Corral MD Information Interpreted: non-clinical & clinical Accompanied by: Self / Same As Patient Allergies meloxicam [MELOXICAM] Allergy (Intermediate, Verified 06/29/24 09:41) NAUSEA & VOMITING, GI UPSET Penicillins [PENICILLINS] Allergy (Intermediate, Verified 06/29/24 09:41) RASH prednisone [PREDNISONE] Allergy (Intermediate, Verified 06/29/24 09:41) Hives, Rash Tobacco use date assessed: 06/29/24 Dental Screening Dental Screen Date: 06/29/24 Did you have a dental visit in the last 12 months?: No Did you have a dental problem in the last 6 months where you did not have access to dental care?: No Was dental information given to patient?: Patient has dentist HPI HPI Comments History of Present Illness Details This is a 53-year-old female with mild major depression, osteopenia, bilateral lumbar radiculopathy and opioid dependence that comes today complaining of right upper quadrant abdominal pain that has been present for few weeks. Had diarrhea today. No fever. No nausea or vomiting. Has depression but declines any treatment. On calcium with vitamin-D for her osteopenia. On tramadol for her lumbar radiculopathy but she said is not working therefore I will discontinue it. She does follows with pain management for this matter and had a recent MRI of the lumbar spine showing disc protrusion and spondylosis. She does have elevated blood pressure today and will be recheck in 3 weeks by nurse navigator. COUNTS INCLUDE 234 BEDS AT THE [facility] Medical History (Updated 06/29/24 @ 10:19 by Erica Corral MD) Hemorrhoids with complication Mild recurrent major depression HSV-2 (herpes simplex virus 2) infection Mild persistent asthma, uncomplicated Migraines RAVI (generalized anxiety disorder) Mild single current episode of major depressive disorder Scoliosis Back pain Polyarthralgia Constipation by delayed colonic transit Nausea GERD (gastroesophageal reflux disease) Surgical History History of mammogram History of tubal ligation History of left knee surgery Amputated toe History of splenectomy Family History Father Hypertension Diabetes CVD (cardiovascular disease) Mother Hypertension Social History Housing: Apartment Alcohol intake: never Patient Tobacco Use Status: Never used Tobacco e-Cigarette/Vaping Use: Never Used Second Hand Smoke Exposure: No service: No Current occupational status: unemployed Cognitive needs: No Hearing needs: No Vision needs: No Questionnaire PHQ-9 Over the last 2 weeks, how often have you been bothered by any of the following problems? 1. Little interest or pleasure in doing things: several days 2. Feeling down, depressed, or hopeless: several days 3. Trouble falling or staying asleep, or sleeping too much: nearly every day 4. Feeling tired or having little energy: several days 5. Poor appetite or overeating: nearly every day 6. Feeling bad about yourself - or that you are a failure or have let yourself or your family down: several days 7. Trouble concentrating on things, such as reading the newspaper or watching television: not at all 8. Moving or speaking so slowly that other people could have noticed. Or the opposite - being so fidgety or restless that you have been moving around a lot more than usual: not at all 9. Thoughts that you would be better off or of hurting yourself in some way: not at all Total score: 10 Depression Screening Interpretation: Positive Depression Screening Follow-up: Existing condition and Follow-up Visit Requested Depression Screening Done: Yes 25363 - PHQ-9 Billing: Yes Source: Developed by Drs. Bucky Sarmiento, Della Tsang, Rodney Hernandez and colleagues, with an educational anjum from [employer]. Thrive Questionnaire Date Thrive assessed: 06/29/24 I am a: Patient What is your living situation today?: I have a steady place to live Within the past 12 months, did the food you bought not last and you didn't have the money to get more?: Never true Within the past 12 months, did you worry whether your food would run out before you got money to buy more?: Never true Do you have trouble paying for medicines?: No Do you have trouble getting transportation to medical appointments?: No Do you have trouble paying your heating and electricity bill?: No Do you have trouble taking care of your child, family member or friend?: No Do you have trouble with day-to-day activities such as bathing, preparing meals, shopping, managing finances, etc.?: No Are you currently unemployed and looking for a job?: No Are you interested in more education?: No Please select the resources that you would like help with: None Currently or been in a relationship where the following occur: No concerns reported THRIVE Score: 0 AUDIT C Alcohol Use Questionnaire (AUDIT-C) 1. How often do you have a drink containing alcohol?: Never Total Score: 0 Score Reviewed/Action Taken: No RAVI-7 AMB Questionnaire RAVI-7 Date RAVI - 7 assessed: 06/29/24 Feeling nervous, anxious, or on edge: 3 = Nearly every day Not being able to stop or control worryin = Several days Worrying too much about different things: 3 = Nearly every day Trouble relaxin = Several days Being so restless that it is hard to sit still: 0 = Not at all Becoming easily annoyed or irritable: 2 = More than half the days Feeling afraid as if something awful might happen: 1 = Several days Total RAVI-7 score (0-4 normal; 5-9 mild; 10-14 moderate; 15-21 severe): 11 Source: Developed by Drs. Bucky Sarmiento, Della Tsang, Rodney Hernandez and colleagues, with an educational anjum from [employer]. RAVI-7 Assessment Billing RAVI-7 Assessment Tool: RAVI-7 Assessment 26548 Review of Systems Const All systems reviewed & are unremarkable except as noted in HPI and below Card Denies chest pain at rest, Denies chest pain with activity, Denies edema, Denies irregular heart rhythm, Denies claudication, Denies dyspnea, Denies dyspnea on exertion, Denies orthopnea, Denies paroxysmal nocturnal dyspnea and Denies slow heart rate Resp Denies cough, Denies dyspnea and Denies dyspnea on exertion GI Reports abdominal pain, Denies change in bowel habits, Denies excessive flatus, Denies nausea and Denies vomiting Denies urinary incontinence, Denies urinary hesitancy and Denies urinary urgency Musc Reports back pain, Denies atrophy, Denies deformity and Denies limited range of motion Physical exam (Primary Care) Vital Signs: Last Vital Signs BP 142/84 H 06/29/24 09:40 BMI result Body Mass Index 23.7 Tobacco/Smoking Status: Tobacco use Status Tobacco use date assessed 06/29/24 06/29/24 09:45 Patient Tobacco Use Status Never used Tobacco 06/29/24 09:45 e-Cigarette/Vaping Use Never Used 06/29/24 09:45 PHQ-9: PHQ-9 Score PHQ-9: Total score 10 06/29/24 10:13 Depression Screening Interpretation: Positive Depression Screening Follow-up: Existing condition and Follow-up Visit Requested Thrive Assessment: Date of Thrive Assessment Date Thrive assessed 06/29/24 06/29/24 09:45 Currently or been in a relationship where the following occur: No concerns reported Resp Effort & Inspection: normal respiratory effort Auscultation: clear to auscultation bilaterally Cardio Jugular venous distension: no JVD Rate: regular rate Rhythm: regular rhythm Heart sounds: S1 normal heart sound present and S2 normal heart sound present GI Palpation (GI): Soft to palpation and Tenderness to palpation present (GI) in the RUQ Back/Spine/Pelvis Thoracic/Lumbar Spine: straight leg raise positive right at 30 degrees Extrem General: Yes full ROM Office Procedures Flu Questionnaire Does the patient have a severe egg allergy?: No Immunizations Fluarix Triv [id number] (PF) 45 mcg (15 mcg x 3)/0.5 mL IM syringe Performing Provider: Erica Corral MD [facility] Documented (not given) by: AMALIA Loja on 06/29/24 09:46 Reason Not Given: Patient Refused Coding Level of Care Code Est Pt Level 4 (34150) Complex EM visit Add On G2211 Diagnoses Right upper quadrant abdominal pain R10.11 Uncomplicated opioid dependence F11.20 Substance use status: uncomplicated Mild recurrent major depression F33.0 Bilateral lumbar radiculopathy M54.16 Osteopenia, unspecified location M85.80 Osteopenia location: unspecified Additional Codes RAVI-7 Assessment Billing - RAVI-7 Assessment Tool: RAVI-7 Assessment 20886 ([id number]) PHQ-9 - 01574 - PHQ-9 Billing: Yes ([id number]) Time Spent (min) 23 Assessment & Plan Assessment & Plan (1) Right upper quadrant abdominal pain: Code(s): R10.11 - Right upper quadrant pain Category: Medical (2) Opioid dependence: Comment: Pain contract signed 12/28/23 Code(s): F11.20 - Opioid dependence, uncomplicated Category: Medical Qualifiers: Substance use status: uncomplicated Qualified Code(s): F11.20 - Opioid dependence, uncomplicated (3) Mild recurrent major depression: Code(s): F33.0 - Major depressive disorder, recurrent, mild Category: Medical (4) Bilateral lumbar radiculopathy: Code(s): M54.16 - Radiculopathy, lumbar region Category: Medical (5) Osteopenia: Code(s): M85.80 - Other specified disorders of bone density and structure, unspecified site Category: Medical Qualifiers: Osteopenia location: unspecified Qualified Code(s): M85.80 - Other specified disorders of bone density and structure, unspecified site Plan I will order an ultrasound of the abdomen for her abdominal pain to rule out cholelithiasis or any other abnormality. Will start her on duloxetine for depression and chronic pain. Will discontinue tramadol since it is not working for her. Continue calcium and vitamin-D for her osteopenia. Orders: Orders US abdomen comp w elastography Today R10.11 - Right upper quadrant pain Complete Blood Count Auto Diff Today D64.9 - Anemia, unspecified Vitamin D 25-OH Total Today E55.9 - Vitamin D deficiency, unspecified Influenza [id number] Immunization Today Z23 - Encounter for immunization Lipid Panel Today E78.5 - Hyperlipidemia, unspecified IRON PROFILE Today D64.9 - Anemia, unspecified Comprehensive [place]. Panel Fast Today R10.11 - Right upper quadrant pain Medications: New duloxetine 20 mg PO BID 30 days 60 caps 1RF Discontinued omeprazole Discontinued Reason: Patient no longer taking 40 mg PO DAILY 90 days 90 caps 0RF tramadol Discontinued Reason: No Longer Medically Relevant 50 mg PO BID 30 days PRN 45 tabs 0RF pain
== END 2024-06-29 10:25 | disposition home or self-care (01) ==
PROVIDERS: PCP Internal Medicine; Visit Provider Internal Medicine
DX: R10.11 Right upper quadrant pain (principal); F11.20 Opioid dependence, uncomplicated; F33.0 Major depressive disorder, recurrent, mild; M54.16 Radiculopathy, lumbar region; M85.80 Other specified disorders of bone density and structure, unspecified site; Z23 Encounter for immunization

== ENCOUNTER → 2024-06-29 09:31 | Outpatient (BNVA) | payer OTHER, SELFPAY | PROVIDERS: PCP Internal Medicine; Visit Provider Internal Medicine | DX: R10.11 Right upper quadrant pain (principal); F33.0 Major depressive disorder, recurrent, mild; F11.20 Opioid dependence, uncomplicated; M54.16 Radiculopathy, lumbar region; M85.80 Other specified disorders of bone density and structure, unspecified site | CPT/HCPCS: 90471; 96127; 99212 ==

== ENCOUNTER 2024-06-30 12:26 | Outpatient (AMB) | payer OTHER, SELFPAY ==
--- NOTE | 2024-06-30 13:01 | A.OFFVIS_ITS ---
Vital Signs 06/30/24 13:10 Height 5 ft 3 in Weight 133 lb 2 oz BMI 23.6 BP 157/83 H Blood Pressure Location Lt brachial Position Sitting Pulse 80 Pulse Source Pulse Oximeter Intake Visit Reasons: MRI FOLLOW UP Economist Research Assistant Required: Yes Economist Research Assistant Language: Slovenian Accompanied by: Self / Same As Patient Allergies meloxicam [MELOXICAM] Allergy (Intermediate, Verified 06/30/24 13:08) NAUSEA & VOMITING, GI UPSET Penicillins [PENICILLINS] Allergy (Intermediate, Verified 06/30/24 13:08) RASH prednisone [PREDNISONE] Allergy (Intermediate, Verified 06/30/24 13:08) Hives, Rash HPI Comments Details: Patient presents back to the office today for follow-up, review of recent MRI MRI reviewed, results as per below Continues with lower back pain with radiation down both lower extremities to the feet Recently had follow up with her primary care doctor who discontinued her tramadol after patient told PCP who was not helping Was started on duloxetine but states it is giving her headaches. She has reach out to her primary care doctor to discuss medication changes Denies recent evaluation by Neurosurgery Denies red flag symptoms including new loss of bowel, bladder or saddle anesthesia Prior: Risa presents back to the office today for follow up lower back pain. She is Slovenian-speaking only, her daughter is present during the visit and assisted with interpretation. Patient declined hospital provided medical technologist generalist services. Last visit here 02/2021, MRI LS was ordered for lumbar radiculopathy. Patient reports she was not able to commit to the MRI as she is nervous about enclosed spaces. She would be willing to try an open MRI. Since that visit her pain has worsened, continues with pain down both legs to th e feet. Endorses numbness and tingling of the legs. Denies red flag symptoms including new loss of bowel, bladder or saddle anesthesia Patient currently taking Tramadol prescribed by her pcp with minimal improvement of her symptoms. 03/04/21 Prior visit with Corinna Palacios NP, Risa is a pleasant guyanese speaking 50 year old female who presents with widespread pain for over 5 years. She is accompanied by her daughter and is requesting to use her for translation. She defers use of our translating services. Given her widespread pain we focused on her neck and low back pain which has been most troublesome. She reports pain throughout the base of the neck that radiates down bilateral arms, L>R, into her hands, with occasional weakness. She denies any associated numbness/tingling. She also reports low back pain which radiates down bilateral legs laterally with a burning sensation into her feet. She denies any numbness, tingling, weakness or bowel/bladder dysfunction. The pain is worse at night and less severe during the day. She reports pain onset was sudden and has gradually worsened. She states the pain is constant and rates the pain a 8-10/10. She states the pain is interfering with sleep, activities of daily living and she cannot care for herself normally. Her daughter is her SENIOR ENVIRONMENTAL SCIENTIST. She is currently on disability and unable to work due to the pain. The patient reports the pain in terms of tissue damage as cramping, burning, and heavy. Her pain is exacerbated by activity as well as prolonged sitting/standing and also reports pain can be present at rest. She states she can only stand for 5-10 minutes. She has been taking naproxen as well as trialed other medications such as topicals, gabapentin, tizanidine and methocarbamol but states she felt off when taking them. She notes in the past she was prescribed oxycodone 5 mg BID by her previous PCP which worked well. She was also prescribed flexeril in the past with moderate effect, but does not have any more refills on this prescription. She denies any recent physical therapy, chiropractic manipulation, massage or acupuncture. Denies any previous neck/back injections or surgery. She reports having a MRI many years ago and when reviewing her visits through [facility], it appears the status of many are aborted as she reports claustrophobia. REPLACED BY [facility] Medical History Hemorrhoids with complication Mild recurrent major depression HSV-2 (herpes simplex virus 2) infection Mild persistent asthma, uncomplicated Migraines RAVI (generalized anxiety disorder) Mild single current episode of major depressive disorder Scoliosis Back pain Polyarthralgia Constipation by delayed colonic transit Nausea GERD (gastroesophageal reflux disease) Surgical History History of mammogram History of tubal ligation History of left knee surgery Amputated toe History of splenectomy Family History Father Hypertension Diabetes CVD (cardiovascular disease) Mother Hypertension Social History Housing: Apartment Alcohol intake: never Patient Tobacco Use Status: Never used Tobacco e-Cigarette/Vaping Use: Never Used Second Hand Smoke Exposure: No service: No Current occupational status: unemployed Cognitive needs: No Hearing needs: No Vision needs: No Review of Systems Const All systems reviewed & are unremarkable except as noted in HPI and below Physical Exam Vital Signs: Last Vital Signs Pulse 80 06/30/24 13:10 BP 157/83 H 06/30/24 13:10 BMI result Body Mass Index 23.6 General: awake, alert, oriented. Answers questions appropriately. Fully engaged in examination. Skin: warm, dry, intact HEENT: Normocephalic. Hearing intact. Cardiac: External chest normal in appearance. Respiratory: No cough, audible wheezing or stridor. Abdomen: without gross distension. MS: No obvious swelling or deformities. Able to transition from sit to stand unassisted. Neurological: Oriented to person, place, time and situation. Thought process intact. No gait abnormalities appreciated. Psychiatric: Appropriate mood and affect. Good judgment and insight. Results Reviewed Results Reviewed: MRI LS W/O FINDINGS: Submitted for interpretation on June 27, 2024. Last rib-bearing vertebra labeled T12. Bone marrow inhomogeneity. Multilevel disc desiccation and marginal osteophyte formation, L3 S1. The alignment is normal. The conus medullaris ends at inferior endplate of L1 with normal signal. T12-L1: No disc herniation. No neuroforamina stenosis. L1-2: No disc herniation. No neuroforamina stenosis. L2-3: Broad-based disc bulging. Facet joint and ligamentum flavum hypertrophy. Reduced AP diameter of the thecal sac and the neural foramina. No compression upon neural elements. L3-4: Broad-based disc bulging. Facet joint and ligamentum flavum hypertrophy. Reduced AP diameter of the thecal sac and the neural foramina likely encroaching the neural elements. L4-5: Broad-based disc bulging. Focal hyperintense T2 signal in the posterior disc suggesting annular fissure. Facet joint and ligamentum flavum hypertrophy. Reduced AP diameter of the thecal sac and the neural foramina likely encroaching the neural elements. L5-S1: Broad-based disc bulging. Facet joint and ligamentum flavum hypertrophy. No central spinal canal stenosis. Bilateral neuroforamina stenosis compressing the exiting nerve roots of L5 and to a lesser extent S1. No prevertebral compartment hematoma, mass or fluid collection. There is a 1.3 cm exophytic fluid signal characteristic lesion in the posterior upper pole/midportion junction right kidney. IMPRESSION: Multilevel lumbar spondylosis, L3-4 to L5-S1 resulting in central spinal canal stenosis at L4-5 and L3-4 levels and bilateral neuroforamina stenosis L5-S1 and to a lesser extent L4-5 and L3-4 levels compressing the exiting nerve roots of L5-S1 and encroaching the L4 and L3 nerve roots. Assessment & Plan Assessment & Plan (1) Lumbar radiculopathy: Code(s): M54.16 - Radiculopathy, lumbar region Category: Medical (2) Lumbar spondylosis: Code(s): M47.816 - Spondylosis without myelopathy or radiculopathy, lumbar region Category: Medical (3) Cervical spondylosis: Code(s): M47.812 - Spondylosis without myelopathy or radiculopathy, cervical region Category: Medical (4) Bilateral lumbar radiculopathy: Code(s): M54.16 - Radiculopathy, lumbar region Category: Medical Plan Patient presents back to the office today for follow-up chronic lower back pain, review of recent MRI MRI reviewed, results as per above New prescription for methocarbamol 500 mg p.o. 3 times daily as needed. Patient advised on cautions for use. Discussed options for treatment including diagnostic interventional testing, epidural steroid injections, peripheral nerve stimulation with Sprint, RFA and more permanent neuromodulation. Consider fluoroscopy guided L5-S1 epidural steroid injection with local anesthetic. Patient is not ready to proceed with interventional management. She would like to consider the options and will call our office when she is ready to schedule. Referral placed for neuro spine for evaluation All questions and concerns answered, patient agrees pain. Follow-up when ready to proceed with interventional management, sooner if needed Orders: Referrals Neuro Spine Referral M54.16 - Radiculopathy, lumbar region Medications: New methocarbamol No driving while taking this medication. Do no take with alcohol or other [employer] Depressants 500 mg PO TID PRN 90 tabs 1RF muscle spasm Coding Level of Care Code Est Pt Level 3 (11148) Complex EM visit Add On G2211 Diagnoses Lumbar radiculopathy M54.16 Lumbar spondylosis M47.816 Cervical spondylosis M47.812 Bilateral lumbar radiculopathy M54.16
[2024-06-30 13:10] VITALS: BP 157/83; PULSE 80; BMI 23.6
== END 2024-06-30 13:34 | disposition home or self-care (01) ==
PROVIDERS: PCP Internal Medicine; Visit Provider Registered Nurse Emergency
DX: M54.16 Radiculopathy, lumbar region (principal); M47.816 Spondylosis without myelopathy or radiculopathy, lumbar region; M47.812 Spondylosis without myelopathy or radiculopathy, cervical region
CPT/HCPCS: 99213; G2211

== ENCOUNTER → 2024-06-30 12:26 | Outpatient (BNVA) | payer OTHER, SELFPAY | PROVIDERS: PCP Internal Medicine; Visit Provider Registered Nurse Emergency | DX: M54.16 Radiculopathy, lumbar region (principal); M47.816 Spondylosis without myelopathy or radiculopathy, lumbar region; M47.812 Spondylosis without myelopathy or radiculopathy, cervical region | CPT/HCPCS: 99212 ==

== ENCOUNTER 2024-07-10 11:07 | Outpatient (REF) | payer OTHER, SELFPAY | END 2024-07-10 11:08 | disposition home or self-care (01) | LOC: HO.US 11:07 | PROVIDERS: PCP Internal Medicine; Visit Provider Internal Medicine | DX: Z13.89 Encounter for screening for other disorder (principal) ==

== ENCOUNTER 2024-07-14 06:29 | Outpatient (REF) | payer OTHER, SELFPAY ==
[2024-07-14 06:41] LABS: MANUAL DIFF FLAG NO
[2024-07-14 07:07] LABS: Basophils Percent Auto 0.6 % (0-2); Eosinophils Absolute Auto 0.1 X10*3/uL (0.0-0.4); Eosinophils Percent Auto 1.5 % (0-4); Hematocrit 36.4 % (37.0-47.0); Hemoglobin 12.1 g/dl (12.0-16.0); Imm Gran Abs Auto 0.02 X10*3/uL (0.00-0.03); Imm Gran Pct Auto 0.3 % (0.0-0.4); Lymphocytes Absolute Auto 3.1 X10*3/uL (1.2-4.9); Lymphocytes Percent Auto 44.7 % (20-40); Mean Corpuscular HGB Conc 33.2 g/dl (31.0-35.0); Mean Corpuscular Hemoglobin 30.1 pg (27.0-33.0); Mean Corpuscular Volume 90.5 fL (80.0-98.0); Monocytes Absolute Auto 0.6 X10*3/uL (0.1-1.2); Monocytes Percent Auto 8.9 % (2-11); Platelet Count 362 X10*3/uL (160-400); Red Blood Count 4.02 X10*6/uL (4.20-5.50); Red Cell Distribution Width 12.4 % (11.0-16.0); White Blood Count 6.8 X10*3/uL (4.8-10.8)
[2024-07-14 07:42] LABS: Alanine Aminotransferase 14 U/L (0-31); Alkaline Phosphatase 97 U/L (39-117); Anion Gap 12 (12-20); Aspartate Amino Transferase 23 U/L (5-31); Bilirubin Total 0.7 mg/dL (0.0-1.0); Blood Urea Nitrogen 13 mg/dL (9-16); Calcium 9.7 mg/dL (8.4-10.2); Carbon Dioxide 29 mmol/L (22-29); Chloride 107 mmol/L (96-108); Cholesterol 197 mg/dL (<200); Estimated Glomerular Filt Rate > 60; Glucose Fasting 88 mg/dL (60-99); HDL Cholesterol 50 mg/dL (>40); Iron 61 mcg/dL (30-160); LDL Cholesterol Calculated 128 mg/dL (<100); Percent Iron Saturation 21 % (15-50); Potassium 4.5 mmol/L (3.3-5.1); Sodium 143 mmol/L (135-145); Total Iron Binding Capacity 294 mcg/dL (228-428); Total Protein 7.3 g/dL (6.5-8.0); Triglycerides 98 mg/dL (<150); Unsaturated Iron Binding 233 ug/dL
[2024-07-14 08:02] LABS: Vitamin D 25-OH Total 30.9 ng/mL (>30)
== END 2024-07-14 06:30 | disposition home or self-care (01) ==
LOC: HO.LAB 06:29
PROVIDERS: PCP Internal Medicine; Visit Provider Internal Medicine
DX: D64.9 Anemia, unspecified (principal); E55.9 Vitamin D deficiency, unspecified; E78.5 Hyperlipidemia, unspecified; R10.11 Right upper quadrant pain
CPT/HCPCS: 36415; 80053; 80061; 82306; 83540; 85025

== ENCOUNTER 2024-12-14 09:44 | Outpatient (AMB) | payer OTHER, SELFPAY ==
--- NOTE | 2024-12-14 09:10 | A.OFFPSYCH_ITS ---
Intake Intake Visit Reasons: consultation Wood Gluer Required: Yes Provided:: Language: Language Interpreted:: Bulgarian and Wood Gluer (Litzy) Type:: Employee Allergies meloxicam (MELOXICAM) Allergy (Intermediate, Verified 06/30/24 13:08) NAUSEA & VOMITING, GI UPSET Penicillins (PENICILLINS) Allergy (Intermediate, Verified 06/30/24 13:08) RASH prednisone (PREDNISONE) Allergy (Intermediate, Verified 06/30/24 13:08) Hives, Rash Medication List - Last Reconciled 12/14/24 by Nell Berg APRN acetaminophen ER 650 mg PO Q8H PRN 30 days bisacodyl (Dulcolax (bisacodyl)) 20 mg (4 x 5 mg) PO ONCE 1 day calcium carbonate-vitamin D3 500 mg-10 mcg (400 unit) (Oyster Shell Calcium- Vitamin D3) 2 tabs PO DAILY 90 days diclofenac sodium 3% 1 appl topical BID duloxetine 20 mg PO BID 30 days fluticasone propionate 50 mcg/actuation (Flonase Allergy Relief) 1 spray intranasal DAILY methocarbamol 500 mg PO TID PRN polyethylene glycol 3350 (Miralax) 238 grams PO ONCE 1 day TENS units (TENS 502 device) As directed tramadol 50 mg PO DAILY PRN 30 days Ventolin HFA 90 mcg/actuation (albuterol sulfate) 2 puffs PO Q6H PRN NS HPI- Psychiatric Chief Complaint: consultation HPI Narrative: Pt seen with [facility] approved pastoral ministries professor. Pt referred by PCP with depression and anxiety, currently prescribed duloxetine. Pt reports not taking the duloxetine every day. She says she gets headaches and nausea from it sometimes. She reports not sleeping at night. She reports chronic pain and very little relief from tramadol; she has seen pain management; she says she used to take prescribed oxycodone and it helped everything; sge says it helped her mood, pain and sleep. Her PHQ(=18 and her GAD7= 15. She dneies SI or hI; no self harm ideation, plan or intent. Pt reports she used to take lexapro and it didn't help; pt reports she used to take ambien and she would sleep well with no side effects.. Past Psychiatric History: pt reports many years of depression; treated outpt; no IPLOC. no previous suicide attempts. Subjective Subjective Subjective Medication Compliance: No Side effects from medications: Yes Mental Status Exam Mental Status Exam Patient Appearance: Well Grooomed and Appropriate Patient Orientation: Person, Place, Time and Situation Level of Consciousness: Awake, Appropriate and Alert Patient Behavior: Appropriate, Cooperative and Good Eye Contact Mood Description: Depressed and Anxious Affect Description: Depressed, Anxious and Sad Patient Cognition Impaired: No Ability to Follow Directions: Good Speech Pattern: Clear Memory Description: Intact Hallucinations: None Delusions: Not Present Thought Process: Intact and Goal Oriented Thought Content: positive for Intact and positive for Goal Oriented Judgement: Fair Assessment and Plan Assessment & Plan (1) RAVI (generalized anxiety disorder): Status: Acute Code(s): F41.1 - Generalized anxiety disorder (2) Major depressive disorder, recurrent, moderate: Status: Acute Code(s): F33.1 - Major depressive disorder, recurrent, moderate Plan retrun in 4 weeks for follow up education re: consistency with meds for efficacy Medications: New duloxetine (Cymbalta) 60 mg PO DAILY 90 caps 0RF zolpidem (Ambien) 5 mg PO BEDTIME PRN 30 tabs 0RF sleep ondansetron 4 mg PO Q8H PRN 14 tabs 0RF nausea and vomiting Discontinued duloxetine Discontinued Reason: Doctor's Order 20 mg PO BID 30 days 60 caps 1RF Counseling and coordination of Care Pt. Self Management counseling: Maintenance-social rhythm, Mod caffeine/ETOH intake, Nutrition education and improvement, Sleep hygiene and Behavior activation Medication management counseling: Effectiveness, Side effects, Dosing range, Duration, Drug interaction and Adherence Diagnosis and Prognosis Counseling: Accuracy of diagnosis, Prognosis over time, Impact of diagnosis on life functions, Impact of family relationship, Problematic behaviors secondary to diagnosis and Adequacy of current interventions Details: I spent 70 minutes reviewing the record, seeing the patient and documenting in the medical record. Counseling provided to the patient/caregiver as outlined below. Addressed patient/caregiver concerns regarding current medication regime including effective adherence. Addressed patient/caregiver concerns regarding diagnosis a nd prognosis including accuracy of diagnosis, prognosis over time, impact of diagnosis. Addressed patient/caregiver concerns regarding impact of recent stressors. [facility] Medical History (Updated 12/14/24 @ 14:04 by Nell Berg APRN) Hemorrhoids with complication Mild recurrent major depression HSV-2 (herpes simplex virus 2) infection Mild persistent asthma, uncomplicated Migraines RAVI (generalized anxiety disorder) Mild single current episode of major depressive disorder Scoliosis Back pain Polyarthralgia Constipation by delayed colonic transit Nausea GERD (gastroesophageal reflux disease) Surgical History History of mammogram History of tubal ligation History of left knee surgery Amputated toe History of splenectomy Family History Father Hypertension Diabetes CVD (cardiovascular disease) Mother Hypertension Social History Housing: Apartment Alcohol intake: never Patient Tobacco Use Status: Never used Tobacco e-Cigarette/Vaping Use: Never Used Second Hand Smoke Exposure: No service: No Current occupational status: unemployed Cognitive needs: No Hearing needs: No Vision needs: No Coding Level of Care Code Psych Diag Eval w/Med (26388) Diagnoses RAVI (generalized anxiety disorder) F41.1 Major depressive disorder, recurrent, moderate F33.1
--- OUTSIDE RECORDS SUMMARY | 2024-12-14 10:12 | XMS_ITS | Clinical Summary ---
Author Organization [employer] [facility] Address [address] [place] [address] Care Team Providers Care Life Specialist Name Role Phone Erica Corral MD Primary Care Provider [phone] Surgical History Surgery Date Site/Laterality Comments OTHER SURGICAL HISTORY PROCEDURE: HISTORICAL SPLENECTOMY; COMMENT: ? due to low platelet FOOT SURGERY PROCEDURE: [place] UNLISTED PROCEDURE FOOT/TOES; COMMENT: after traumatic amputation left first toe TUBAL LIGATION PROCEDURE: HISTORICAL TUBAL LIGATION Medical History Medical History Date Comments Anxiety state DX:Anxiety state Asthma DX:Asthma Abnormal cytological finding in specimen from cervix DX:Abnormal cytological find ing in specimen from cervix Bacterial pneumonia 1997 DX:Bacterial pneumonia Venereal disease DX:Venereal dis ease; COMMENT: + HSV GERD (gastroesophageal reflu x disease) 03/25/2017 DX:GERD (gastroesophageal re flux disease) Chronic constipation 03/25/2017 DX:Chronic constipation Personal history of COVID-19 01/2020 DX: Personal history of COVID-19 Family History Medical History Relation Name Comments Other: renal ca Father Other cancer Mother Colon cancer Neg Hx Relation Name Status Comments Brother x4 Father Alive Mother Alive Sister x3 Social History Tobacco Use Types Packs/Day Years Used Date Smoking Tobacco: Never Smokeless Tobacco: Never Alcohol Use Standard Drinks/Week Comments No 0 (1 standard drink = 0.6 oz pur e alcohol) Comments Unknown Sex and Gender Information Value Date Recorded Sex Assigned at Not on file Legal Sex Female 5:41 PM EST Gender Identity Not on file Sexual Orientation Not on file Obstetrics History Plan of Treatment Health Maintenance Due Date Last Done Comments Breast Cancer Screening 1969 DTaP,Tdap,and Td Vaccines (1 - Tdap) 1988 Hepatitis B Vaccines (1 of 3 - 19+ 3-dose series) 1988 Pneumococcal Vaccine: 50+ Years (1 of 2 - PCV) 1988 Pneumococcal Vaccine: Pediatrics (0 to 5 Years) and At-Risk Patients (6 to 64 Years) (1 of 2 - PCV) 1988 Zoster Vaccines (1 of 2) 11/26/2019 Colorectal Cancer Screening: Colonoscopy 05/16/2022 Depression Screening 05/16/2022 HIV Screening 05/16/2022 Hepatitis C Screening 05/16/2022 Social Influencers of Health Screening 05/16/2022 COVID-19 Vaccine ( - 2023-2 5 season) 2024 Cervical Cancer Screening: P ap Smear 03/20/2024 03/20/2021, 04/14/2019 Influenza Vaccine (Season Ended) 2025 HIB Vaccines Aged Out No longer eligi ble based on patient's age to complete this topic HPV Vaccines Aged Out No longer eligi ble based on patient's age to complete this topic Hepatitis A Vaccines Aged Out No long er eligible based on patient's age to complete this topic IPV Vaccines Aged Out No longer eligi ble based on patient's age to complete this topic MMR Vaccines Aged Out No longer eligi ble based on patient's age to complete this topic Meningococcal ACWY Vaccine Aged Out N o longer eligible based on patient's age to complete this topic Meningococcal B Vaccine Aged Out No l onger eligible based on patient's age to complete this topic RSV Immunization Patients Under 20 months Aged Out No longer eligible b ased on patient's age to complete this topic Varicella Vaccines Aged Out No longer eligible based on patient's age to complete this topic Procedures Procedure Name Priority Date/Time Associated Diagnosis Comments PAP SMEAR Routine 03/20/2021 from Last 3 Months or Most Recently Relevant to Health Maintenance Results * Pap smear (03/20/2021) 03/20/2021 Narrative HISTORICAL TESTING LAB RESULTING AGENCY - 04/09/2021 7:45 AM EDT [id number] THINPREP PAP, IMAGED: NEGATIVE FOR SQUAMOUS INTRAEPITHELIAL LESION AND MALIGNANCY . ABUNDANT RED BLOOD CELLS ARE PRESENT. SCANT CELLULARITY. JEN VICKERS(ASCP) (CASE ELECTRONICALLY SIGNED 04 08 2021) RESULT OF APTIMA HIGH RISK HPV ASSAY: HIGH RISK HPV: NEGATIVE (SEROTYPES 16,18,31,33,35,39,45,51,52,56,58,59,66,68) COMPLETED ON 2021-03-26 ADEQUACY: SATISFACTORY ENDOCERVICAL/TRANSFORMATION ZONE COMPONENT PRESENT. SOURCE: THINPREP PAP HPV ANY DX: REFLEX 16 AND 18, CERVICAL, IMAGED CLINICAL INFORMATION: HPV ANY DIAGNOSIS. MENOPAUSE, Z12.4, PAP HX NEG Shilpi Moss [facility] LAB CYTOLOGY ORDERABLES Final Result HISTORICAL TESTING LAB RESULTING AGENCY from Last 3 Months or Most Recently Relevant to Health Maintenance Care Teams Life Specialist Relationship Specialty Start Date End Date Erica Corral MD [address] [place] [address] , [address] [facility]ician Associ D/B/A: [facility] PAULINO Canas PCP - General Internal Medicine 02/18/17
== END 2024-12-14 09:46 | disposition home or self-care (01) ==
LOC: HO.HOP 09:44
PROVIDERS: PCP Internal Medicine; Visit Provider Clinical Nurse Specialist Psychiatric/Mental Health
DX: F41.1 Generalized anxiety disorder (principal); F33.1 Major depressive disorder, recurrent, moderate
CPT/HCPCS: 90792

== ENCOUNTER → 2024-12-14 09:44 | Outpatient (BNVA) | payer OTHER, SELFPAY | PROVIDERS: PCP Internal Medicine; Visit Provider Clinical Nurse Specialist Psychiatric/Mental Health | DX: F41.1 Generalized anxiety disorder (principal); F33.1 Major depressive disorder, recurrent, moderate | CPT/HCPCS: 90792 ==

== ENCOUNTER 2025-01-01 08:24 | Outpatient (AMB) | payer OTHER, SELFPAY ==
--- NOTE | 2025-01-01 08:29 | MHC.PC.OV ---
Vital Signs 01/01/25 08:31 Height 5 ft 3 in Weight 131 lb BMI 23.2 BP 138/78 Blood Pressure Location Lt brachial Position Sitting Intake Visit Reasons: annual exam Intake Note: Patient here for an annual physical exam Director Professional Services Required: No Accompanied by: Self / Same As Patient Allergies meloxicam (MELOXICAM) Allergy (Intermediate, Verified 01/01/25 08:39) NAUSEA & VOMITING, GI UPSET Penicillins (PENICILLINS) Allergy (Intermediate, Verified 01/01/25 08:39) RASH prednisone (PREDNISONE) Allergy (Intermediate, Verified 01/01/25 08:39) Hives, Rash Medication List - Last Reconciled 01/01/25 by Erica Corral MD acetaminophen ER 650 mg PO Q8H PRN 30 days bisacodyl (Dulcolax (bisacodyl)) 20 mg (4 x 5 mg) PO ONCE 1 day calcium carbonate-vitamin D3 500 mg-10 mcg (400 unit) (Oyster Shell Calcium-Vitamin D3) 2 tabs PO DAILY 90 days diclofenac sodium 3% 1 appl topical BID duloxetine (Cymbalta) 60 mg PO DAILY fluticasone propionate 50 mcg/actuation (Flonase Allergy Relief) 1 spray intranasal DAILY methocarbamol 500 mg PO TID PRN ondansetron 4 mg PO Q8H PRN polyethylene glycol 3350 (Miralax) 238 grams PO ONCE 1 day TENS units (TENS 502 device) As directed tramadol 50 mg PO DAILY PRN 30 days Ventolin HFA 90 mcg/actuation (albuterol sulfate) 2 puffs PO Q6H PRN NS zolpidem (Ambien) 5 mg PO BEDTIME PRN Tobacco use date assessed: 06/29/24 Dental Screening Dental Screen Date: 06/29/24 HPI HPI Comments History of Present Illness Details The patient is a 54-year-old female presenting for an annual physical examination and management of chronic conditions. The patient reports a history of rectal bleeding, which was previously evaluated by a wellness consultant, but she has not undergone a colonoscopy or Cologuard test due to fear. She has a history of osteoarthritis, with previous surgery on her left knee for tendon issues, but no knee replacement was performed. The patient has spinal stenosis, which causes discomfort when standing upright, but she finds relief when leaning forward, such as when using a shopping cart. She has experienced allergic reactions to several medications, including Meloxicam, which caused nausea and vomiting, Penicillin and Prednisone, which caused rashes, and Duloxetine, which caused headaches. The patient reports sleep disturbances and uses Ambien for sleep management. She has a history of sinusitis, which has affected her throat and nose, and she has been prescribed an inhaler for respiratory management. Her family history includes a father who young from heart disease and a mother with hypertension. The patient does not consume alcohol or tobacco. - Tetanus vaccination discussed but declined - Colonoscopy and Cologuard screening discussed but not performed because she declines - Mammography discussed but not performed - Bone density scan performed in October 2023 [facility] Medical History (Updated 01/01/25 @ 10:20 by Erica Corral MD) Hemorrhoids with complication Mild recurrent major depression HSV-2 (herpes simplex virus 2) infection Mild persistent asthma, uncomplicated Migraines RAVI (generalized anxiety disorder) Mild single current episode of major depressive disorder Scoliosis Back pain Polyarthralgia Constipation by delayed colonic transit Nausea GERD (gastroesophageal reflux disease) Surgical History History of mammogram History of tubal ligation History of left knee surgery Amputated toe History of splenectomy Family History Father Hypertension Diabetes CVD (cardiovascular disease) Mother Hypertension Social History Housing: Apartment Alcohol intake: never Patient Tobacco Use Status: Never used Tobacco e-Cigarette/Vaping Use: Never Used Second Hand Smoke Exposure: No service: No Current occupational status: unemployed Cognitive needs: No Hearing needs: No Vision needs: No Questionnaire PHQ-9 Over the last 2 weeks, how often have you been bothered by any of the following problems? 1. Little interest or pleasure in doing things: more than half the days 2. Feeling down, depressed, or hopeless: not at all 3. Trouble falling or staying asleep, or sleeping too much: nearly every day 4. Feeling tired or having little energy: more than half the days 5. Poor appetite or overeating: nearly every day 6. Feeling bad about yourself - or that you are a failure or have let yourself or your family down: not at all 7. Trouble concentrating on things, such as reading the newspaper or watching television: more than half the days 8. Moving or speaking so slowly that other people could have noticed. Or the opposite - being so fidgety or restless that you have been moving around a lot more than usual: more than half the days 9. Thoughts that you would be better off or of hurting yourself in some way: more than half the days Total score: 16 Depression Screening Interpretation: Positive Depression Screening Follow-up: Existing condition, In treatment, Community Mental Health Worker F/U and Follow-up Visit Requested Depression Screening Done: Yes 45913 - PHQ-9 Billing: Yes Source: Developed by Drs. Bucky Sarmiento, Della Tsang, Rodney Hernandez and colleagues, with an educational anjum from [employer]. Thrive Questionnaire Date Thrive assessed: 01/01/25 I am a: Patient What is your living situation today?: I have a steady place to live Within the past 12 months, did the food you bought not last and you didn't have the money to get more?: I choose not to answer this question Within the past 12 months, did you worry whether your food would run out before you got money to buy more?: I choose not to answer this question Do you have trouble paying for medicines?: Yes Do you have trouble getting transportation to medical appointments?: Yes Do you have trouble paying your heating and electricity bill?: No Do you have trouble taking care of your child, family member or friend?: No Do you have trouble with day-to-day activities such as bathing, preparing meals, shopping, managing finances, etc.?: No Are you currently unemployed and looking for a job?: I choose not to answer this question Are you interested in more education?: I choose not to answer this question THRIVE Score: 1 RAVI-7 AMB Questionnaire RAVI-7 Date RAVI - 7 assessed: 06/29/24 Source: Developed by Drs. Bucky Sarmiento, Della Tsang, Rodney Hernandez and colleagues, with an educational anjum from [employer]. Review of Systems Const All systems reviewed & are unremarkable except as noted in HPI and below Card Denies chest pain at rest, Denies chest pain with activity, Denies edema, Denies irregular heart rhythm, Denies claudication, Denies dyspnea, Denies dyspnea on exertion, Denies orthopnea, Denies paroxysmal nocturnal dyspnea and Denies slow heart rate Resp Denies cough, Denies dyspnea and Denies dyspnea on exertion GI Denies abdominal pain, Denies change in bowel habits, Denies excessive flatus, Denies nausea and Denies vomiting Denies urinary incontinence, Denies urinary hesitancy and Denies urinary urgency Musc Denies atrophy, Denies deformity and Denies limited range of motion Skin/Breast Denies bleeding lesions, Denies changing lesions and Denies rash Physical exam (Primary Care) Vital Signs: Last Vital Signs BP 138/78 01/01/25 08:31 BMI result Body Mass Index 23.2 Tobacco/Smoking Status: Tobacco use Status Tobacco use date assessed 06/29/24 01/01/25 08:29 Patient Tobacco Use Status Never used Tobacco 01/01/25 08:29 e-Cigarette/Vaping Use Never Used 01/01/25 08:29 PHQ-9: PHQ-9 Score PHQ-9: Total score 16 01/01/25 08:29 Depression Screening Interpretation: Positive Depression Screening Follow-up: Existing condition, In treatment, Community Mental Health Worker F/U and Follow-up Visit Requested Thrive Assessment: Date of Thrive Assessment Date Thrive assessed 01/01/25 01/01/25 08:29 [facility] Head: Yes normal to inspection, Yes normocephalic and Yes atraumatic Ears: external ears normal Eyes General: appearance normal, both eyes and all related structures Eyelids: Yes eyelids normal Conjunctivae: conjunctivae normal Neck Neck: Yes normal visual inspection and Yes supple Resp Effort & Inspection: normal respiratory effort Auscultation: clear to auscultation bilaterally Cardio Jugular venous distension: no JVD Rate: regular rate Rhythm: regular rhythm Heart sounds: S1 normal heart sound present and S2 normal heart sound present GI Inspection: Yes normal to inspection Palpation (GI): Soft to palpation and nontender Auscultation: normal bowel sounds Skin General skin exam: no rashes or lesions noted Neuro General: no focal motor deficits Extrem General: Yes full ROM Psych Appearance: grossly normal Coding Level of Care Code Est Pt Level 4 (83432) Est Pt Prev Care 40-64y(62493) Diagnoses Physical exam Z00.00 Lumbar spinal stenosis M48.061 Chronic cough R05.3 Left hand pain M79.642 Major depressive disorder, recurrent, moderate F33.1 Uncomplicated opioid dependence F11.20 Substance use status: uncomplicated Additional Codes PHQ-9 - 81158 - PHQ-9 Billing: Yes ([id number]) Time Spent (min) 33 Assessment & Plan Assessment & Plan (1) Physical exam: Code(s): Z00.00 - Encounter for general adult medical examination without abnormal findings Category: Medical (2) Lumbar spinal stenosis: Code(s): M48.061 - Spinal stenosis, lumbar region without neurogenic claudication Category: Medical (3) Chronic cough: Code(s): R05.3 - Chronic cough Category: Medical (4) Left hand pain: Code(s): M79.642 - Pain in left hand Category: Medical (5) Major depressive disorder, recurrent, moderate: Code(s): F33.1 - Major depressive disorder, recurrent, moderate Category: Medical (6) Opioid dependence: Comment: Pain contract signed 12/28/23 Code(s): F11.20 - Opioid dependence, uncomplicated Category: Medical Qualifiers: Substance use status: uncomplicated Qualified Code(s): F11.20 - Opioid dependence, uncomplicated Plan The patient declined the tetanus vaccination during this visit. A referral to a test preparation tutor was discussed due to concerns about respiratory health, and an inhaler was prescribed for sinusitis management. The patient was advised to undergo a colonoscopy or Cologuard test for colorectal cancer screening, but she expressed fear about the procedures. A mammography was also recommended but not yet performed. The patient was advised to continue using Ambien for sleep disturbances. Due to spinal stenosis, the patient was informed about the benefits of leaning forward to alleviate discomfort. Was referred to neuro spine. Allergic reactions to medications were reviewed, and alternative pain management strategies were discussed, including the use of Flexeril instead of Metocarbamol. Patient was informed and verbally consented to the use of an ambient scribe for clinic note documentation during this visit. Orders: Orders XR chest 2V Today R06.00 - Dyspnea, unspecified Vitamin D 25-OH Total Today E55.9 - Vitamin D deficiency, unspecified Complete Blood Count Auto Diff Today D64.9 - Anemia, unspecified Thyroid Stimulating Hormone Today F33.1 - Major depressive disorder, recurrent, moderate MM tomosynthesis screening BI Today Z12.31 - Encounter for screening mammogram for malignant neoplasm of breast Vitamin B12 and Folate Today E53.8 - Deficiency of other specified B group vitamins Comprehensive Met. Panel Today M54.16 - Radiculopathy, lumbar region Referrals Neuro Spine Referral M48.061 - Spinal stenosis, lumbar region without neurogenic claudication Hand Surgery Referral M79.642 - Pain in left hand Pulmonology Referral R05.3 - Chronic cough Medications: New cyclobenzaprine 10 mg PO BEDTIME PRN 30 tabs 2RF muscle spasm 30 days Discontinued methocarbamol No driving while taking this medication. Do no take with alcohol or other CHILDBIRTH EDUCATOR Depressants Discontinued Reason: Patient Completed Course 500 mg PO TID PRN 90 tabs 1RF muscle spasm duloxetine (Cymbalta) Discontinued Reason: Patient Completed Course 60 mg PO DAILY 90 caps 0RF Patient Instructions: - Consider scheduling a colonoscopy or Cologuard test for colorectal cancer screening. - Schedule a mammogram as soon as possible. - Continue taking Ambien for sleep disturbances as prescribed. - Lean forward when standing to alleviate discomfort from spinal stenosis. - Avoid medications that have caused allergic reactions in the past.
--- OUTSIDE RECORDS SUMMARY | 2025-01-01 08:30 | XMS_ITS | Clinical Summary ---
Author Organization [facility] Address [address] [place] [address] Care Team Providers Care Physician Name Role Phone Erica Corral MD Primary Care Provider Surgical History Surgery Date Site/Laterality Comments OTHER SURGICAL HISTORY PROCEDURE: HISTORICAL SPLENECTOMY; COMMENT: ? due to low platelet FOOT SURGERY PROCEDURE: [place] UNLISTED PROCEDURE FOOT/TOES; COMMENT: after traumatic amputation [...] Years (1 of 2 - PCV) 1988 Zoster Vaccines (1 of 2) 11/26/2019 Colorectal Cancer Screening: Colonoscopy 05/16/2022 HIV Screening 05/16/2022 Hepatitis C Screening 05/16/2022 Social Influencers of Health Screening 05/16/2022 COVID-19 Vaccine (2023-2 5 season) 2024 Cervical Cancer Screening: P ap Smear 03/20/2024 03/20/2021, 04/14/2019 Depression Screening 06/14/2024 Influenza Vaccine (#1) 2025 HIB Vaccines Aged Out No longer [...] RESULTING AGENCY - 04/09/2021 7:45 AM EDT [id number] THINPREP PAP, IMAGED: NEGATIVE FOR SQUAMOUS INTRAEPITHELIAL [...] MENOPAUSE, Z12.4, PAP HX NEG Shilpi Moss [facility] LAB CYTOLOGY ORDERABLES Final Result HISTORICAL TESTING LAB RESULTING AGENCY from Last 3 Months or Most Recently Relevant to Health Maintenance Care Teams Physician Relationship Specialty Start Date End Date Erica Corral MD [address] [place] [address] , [address] [facility] D/B/A: [facility] PAULINO Canas PCP - General Internal Medicine 02/18/17
[2025-01-01 08:31] VITALS: BP 138/78; BMI 23.2
== END 2025-01-01 08:57 | disposition home or self-care (01) ==
LOC: HO.HMCH 08:25
PROVIDERS: PCP Internal Medicine; Visit Provider Internal Medicine
DX: Z00.00 Encounter for general adult medical examination without abnormal findings (principal); F33.1 Major depressive disorder, recurrent, moderate; F11.20 Opioid dependence, uncomplicated; M48.061 Spinal stenosis, lumbar region without neurogenic claudication; R05.3 Chronic cough; M79.642 Pain in left hand

== ENCOUNTER → 2025-01-01 08:24 | Outpatient (BNVA) | payer OTHER, SELFPAY | PROVIDERS: PCP Internal Medicine; Visit Provider Internal Medicine | DX: M17.12 Unilateral primary osteoarthritis, left knee (principal); M48.061 Spinal stenosis, lumbar region without neurogenic claudication; R05.3 Chronic cough; M79.642 Pain in left hand; F33.1 Major depressive disorder, recurrent, moderate; F11.20 Opioid dependence, uncomplicated; R06.00 Dyspnea, unspecified; E55.9 Vitamin D deficiency, unspecified; D64.9 Anemia, unspecified; E53.8 Deficiency of other specified B group vitamins; M54.16 Radiculopathy, lumbar region | CPT/HCPCS: 96127; 99212; 99396 ==

== ENCOUNTER 2025-01-03 09:32 | Outpatient (REF) | payer OTHER, SELFPAY ==
--- NOTE | ~2025-01-03 | XR_ITS ---
CLINICAL HISTORY: R06.00 - Dyspnea, unspecified 2 view chest x-ray Comparison: CR/SR - XR CHEST 2 VIEWS - 02/29/24 15:03 EDT Findings: The lungs are clear. Normal size heart. No acute fracture. IMPRESSION: 1. No acute findings. This document has been electronically signed by: Estrella Garcia MD on 01/03/2025 11:17:32
[2025-01-03 09:50] LABS: MANUAL DIFF FLAG NO
--- OUTSIDE RECORDS SUMMARY | 2025-01-03 10:02 | XMS_ITS | Clinical Summary ---
Author Organization [employer] [facility] Address [address] [place] [address] Care [address] Operations Clerk Name Role Phone Erica Corral MD Primary Care Provider [phone] Surgical History Surgery Date Site/Laterality Comments OTHER SURGICAL HISTORY PROCEDURE: HISTORICAL SPLENECTOMY; COMMENT: ? due to low platelet FOOT SURGERY PROCEDURE: [place] UNLISTED PROCEDURE FOOT/TOES; COMMENT: after traumatic amputation [...] RESULTING AGENCY - 04/09/2021 7:45 AM EDT [id number] THINPREP PAP, IMAGED: NEGATIVE FOR SQUAMOUS INTRAEPITHELIAL [...] MENOPAUSE, Z12.4, PAP HX NEG Shilpi Moss [facility] LAB CYTOLOGY ORDERABLES Final Result HISTORICAL TESTING LAB RESULTING AGENCY from Last 3 Months or Most Recently Relevant to Health Maintenance Care Teams Court Operations Clerk Relationship Specialty Start Date End Date Erica Corral MD [address] [place] [address] , [address] [facility] D/B/A: [facility] PAULINO Canas PCP - General Internal Medicine 02/18/17
[2025-01-03 10:18] LABS: Hematocrit 34.5 % (37.0-47.0); Hemoglobin 12.0 g/dl (12.0-16.0); Imm Gran Abs Auto 0.02 X10*3/uL (0.00-0.03); Imm Gran Pct Auto 0.4 % (0.0-0.4); Lymphocytes Absolute Auto 2.3 X10*3/uL (1.2-4.9); Mean Corpuscular HGB Conc 34.8 g/dl (31.0-35.0); Mean Corpuscular Hemoglobin 30.4 pg (27.0-33.0); Mean Corpuscular Volume 87.3 fL (80.0-98.0); NRBC Abs Auto 0.000 X10*3/uL (0.0-0.012); NRBC Pct Auto 0.0 /100WBC (0.0-0.2); Platelet Count 355 X10*3/uL (160-400); Red Blood Count 3.95 X10*6/uL (4.20-5.50); White Blood Count 5.6 X10*3/uL (4.8-10.8)
[2025-01-03 11:31] LABS: Alanine Aminotransferase 23 U/L (0-31); Albumin Level 4.1 g/dL (3.5-5.0); Alkaline Phosphatase 107 U/L (39-117); Anion Gap 10 (12-20); Aspartate Amino Transferase 25 U/L (5-31); Blood Urea Nitrogen 11 mg/dL (9-16); Calcium 9.0 mg/dL (8.4-10.2); Carbon Dioxide 28 mmol/L (22-29); Chloride 106 mmol/L (96-108); Estimated Glomerular Filt Rate > 60; Potassium 3.8 mmol/L (3.3-5.1); Sodium 140 mmol/L (135-145); Total Protein 7.1 g/dL (6.5-8.0)
[2025-01-03 11:47] LABS: Thyroid Stimulating Hormone 0.85 uIU/mL (0.32-4.0)
[2025-01-03 11:59] LABS: Folate 13.2 ng/mL (> or = 4.0); Vitamin B12 366 pg/mL (200-900)
== END 2025-01-03 09:33 | disposition home or self-care (01) ==
LOC: HO.XRAY 09:32
PROVIDERS: PCP Internal Medicine; Visit Provider Internal Medicine
DX: F33.1 Major depressive disorder, recurrent, moderate (principal); M54.16 Radiculopathy, lumbar region; E53.8 Deficiency of other specified B group vitamins; D64.9 Anemia, unspecified; R06.00 Dyspnea, unspecified; E55.9 Vitamin D deficiency, unspecified
CPT/HCPCS: 36415; 71046; 80053; 82306; 82607; 82746; 84443; 85025

== ENCOUNTER → 2025-01-03 09:49 | Outpatient (BNV) | payer OTHER, SELFPAY | PROVIDERS: PCP Internal Medicine; Visit Provider Radiology Diagnostic Radiology | DX: R06.00 Dyspnea, unspecified (principal) | CPT/HCPCS: 71046 ==

== ENCOUNTER 2025-01-22 09:18 | Outpatient (AMB) | payer OTHER, SELFPAY ==
--- NOTE | 2025-01-22 09:09 | A.SPINEOV_ITS ---
Intake Visit Reasons: Thoracic back pain Intake Note: Ms. Chan is here today c/o low back and hip pain radiating into left leg. MRI done @ [facility] [place], [place]. Senior Quality Technician Required: Yes Senior Quality Technician Name: Anjelica V., LM Allergies meloxicam (MELOXICAM) Allergy (Intermediate, Verified 01/01/25 08:39) NAUSEA & VOMITING, GI UPSET Penicillins (PENICILLINS) Allergy (Intermediate, Verified 01/01/25 08:39) RASH prednisone (PREDNISONE) Allergy (Intermediate, Verified 01/01/25 08:39) Hives, Rash Assessment & Plan Assessment & Plan (1) Neurogenic claudication due to lumbar spinal stenosis: Code(s): M48.062 - Spinal stenosis, lumbar region with neurogenic claudication Category: Medical Plan Dear Dr. Indio Corral, Thank you for referring Risa to our office today. She is a pleasant 54 year old female who comes in today for evaluation of low back pain and leg pain that worsens with ambulation. She reports that this has been ongoing for the past 5- 6 years in his unable to identify any specific inciting incident. She reports that at rest when sitting down she gets shooting pain down the lateral aspect of her left leg terminating near the calf. When standing up and attempting to walk, she gets worsening pain in her left leg, and a similar distribution of p ain on the right-hand side as well. She reports that she is only able to walk for about 10-15 minutes until she needs to sit down and rest in order to continue walking. She is able to walk longer distances if she is able to lean over a supportive device, such as a shopping cart. When describing the quality of her pain she states it is a pinching/pressure/spasm that occurs down her legs with ambulation. She denies numbness / tingling. She reports that she has been to physical therapy multiple times in the past for this without successful relief of her symptoms. She has not attempted cortisone injections as she reports that she is afraid of injections/surgery. She has attempted amra-pvc-[id number] medications including NSAIDs and antipyretics. In addition to this she is currently prescribed tramadol, which she states gives her about 2 hours of relief from her pain at a time. She is more concerned about her pain now because it is significantly affecting her activities of daily living. She is unable to go for walks, clean her home, and most recently had to get a SCHOOL AGE PROGRAM TEACHER to help her around the house. This is very frustrating for her as she has lived a fairly active lifestyle, and states she used to be an avid runner. PMH: MDD, RAVI, Insomnia (on Ambien), nephrolithiasis, osteopenia (T-score -1.4 on last dexa of lumbar spine), hemorrhoids, GERD, HSV 2, mild persistent asthma, migraines, constipation, rectal bleeding. Social hx: Patient does not smoke, reports no substance use. Medications: See [employer] list. No anti-coagulants or cardiac / pulmonary medications. Allergies: PCN, Meloxicam, prednisone Physical exam: The patient has full 5/5 strength in her upper and lower extremities. She ambulates well and rises from a seated position without difficulty. She uses no assistive devices to ambulate. She does elicit pain when transitioning from a seated to standing position, however does not appear to need support of the chair examination table to rise. She has no significant sensational deficits reported to light touch on examination. Her gait is non spastic and nonantalgic. Weakly (+) left-sided straight leg raise, (-) right- sided straight leg raise. (-) Begum's. (-) clonus. Imaging review: MRI of the lumbar spine completed here at [facility] shows diffuse spondylosis of the lumbar spine. There is posterior disc bulging at L4-5, L5-S1. Notable disc degeneration at L5-S1. There is moderate central canal stenosis at L3-4, and L4-5. Severe right-sided foraminal stenosis at L5- S1. Impression: Risa is a pleasant 54-year-old female who comes in today for evaluation of low back pain and shooting pains into her bilateral lower extremities. This has been ongoing for the past 5-6 years, and she has attempted several different forms of conservative management for this issue without significant relief of her symptoms. Her clinical picture is most consistent with neurogenic claudication. I believe that a good next step for Xenia smallwood would be a series of cortisone injections in the lumbar spine. We discussed this as a possible alternative to surgical intervention to help treat her low back pain and leg pain. Risa reports that she would like to take some time to think about the risks/benefits of attempting injections in her lumbar spine for pain relief. She will call our office in the next few days if she wishes to proceed. I informed her that we are more than happy to place the referral for our colleagues in pain management if she gets to the point where she would like to consider injections in the lumbar spine. I believe addressing the L4-5 level would be most beneficial for her. Thank you for allowing us to care for your patient. The total time spent with this visit with this patient was 45 minutes reviewing history, physical exam, MRI imaging review, and implementation of treatment plan or further diagnostic testing Mejia Carr MD,PhD [facility] Coding Level of Care Code New Pt Level 4 (77765) Diagnoses Neurogenic claudication due to lumbar spinal stenosis M48.062
--- OUTSIDE RECORDS SUMMARY | 2025-01-22 09:44 | XMS_ITS | Clinical Summary ---
Author Organization [address] [place] [address] Address [address] [place] [address] Phone Care Team Providers Care Breaker Up Machine Operator Name Role Phone Erica Corral MD Primary Care Provider [phone] Surgical History Surgery Date Site/Laterality Comments OTHER SURGICAL HISTORY PROCEDURE: HISTORICAL SPLENECTOMY; COMMENT: ? due to low platelet FOOT SURGERY PROCEDURE: [place] UNLISTED PROCEDURE FOOT/TOES; COMMENT: after traumatic amputation [...] Influencers of Health Screening 05/16/2022 COVID-19 Vaccine (1 - 2023-2 5 season) 2024 Cervical Cancer [...] RESULTING AGENCY - 04/09/2021 7:45 AM EDT [id number] THINPREP PAP, IMAGED: NEGATIVE FOR SQUAMOUS INTRAEPITHELIAL [...] ANY DIAGNOSIS. MENOPAUSE, Z12.4, PAP HX NEG us Shilpi Isa [facility] CYTOLOGY ORDERABLES Final Result HISTORICAL TESTING LAB RESULTING AGENCY from Last 3 Months or Most Recently Relevant to Health Maintenance [place] [address] [address] [employer] Care Teams Breaker Up Machine Operator Relationship Specialty Start Date End Date Erica Corral MD [address] [place] [address] , [address] [facility] D/B/A: [facility] [place] PCP - General Internal Medicine 02/18/17
== END 2025-01-22 09:52 | disposition home or self-care (01) ==
LOC: HO.HNS 09:19
PROVIDERS: PCP Internal Medicine; Referring Provider Internal Medicine; Visit Provider Physician Assistant
DX: M48.062 Spinal stenosis, lumbar region with neurogenic claudication (principal)
CPT/HCPCS: 99204

== ENCOUNTER → 2025-01-22 09:18 | Outpatient (BNVA) | payer OTHER, SELFPAY | PROVIDERS: PCP Internal Medicine; Referring Provider Internal Medicine; Visit Provider Physician Assistant | DX: Z71.2 Person consulting for explanation of examination or test findings (principal); M48.062 Spinal stenosis, lumbar region with neurogenic claudication | CPT/HCPCS: 99202 ==

== ENCOUNTER 2025-02-06 09:48 | Outpatient (AMB) | payer OTHER, SELFPAY ==
--- NOTE | 2025-02-06 10:16 | A.OFFPSYCH_ITS ---
Intake Intake Visit Reasons: follow up Nursing Department Chairperson Required: Yes Provided:: Language: (Tuvaluan) and Nursing Department Chairperson (hospital approved ) Allergies meloxicam (MELOXICAM) Allergy (Intermediate, Verified 01/01/25 08:39) NAUSEA & VOMITING, GI UPSET Penicillins (PENICILLINS) Allergy (Intermediate, Verified 01/01/25 08:39) RASH prednisone (PREDNISONE) Allergy (Intermediate, Verified 01/01/25 08:39) Hives, Rash Medication List - Last Reconciled 02/06/25 by Nell Berg APRN acetaminophen ER 650 mg PO Q8H PRN 30 days bisacodyl (Dulcolax (bisacodyl)) 20 mg (4 x 5 mg) PO ONCE 1 day calcium carbonate-vitamin D3 500 mg-10 mcg (400 unit) (Oyster Shell Calcium- Vitamin D3) 2 tabs PO DAILY 90 days cyclobenzaprine 10 mg PO BEDTIME PRN 30 days diclofenac sodium 3% 1 appl topical BID fluticasone propionate 50 mcg/actuation (Flonase Allergy Relief) 1 spray intranasal DAILY ondansetron 4 mg PO Q8H PRN polyethylene glycol 3350 (Miralax) 238 grams PO ONCE 1 day TENS units (TENS 502 device) As directed tramadol 50 mg PO DAILY PRN 30 days Ventolin HFA 90 mcg/actuation (albuterol sulfate) 2 puffs PO Q6H PRN NS zolpidem (Ambien) 5 mg PO BEDTIME PRN HPI- Psychiatric Chief Complaint: follow up HPI Narrative: Pt seen with hospital approved head concierge. Pt seen for follow up re: depression and anxiety. Pt reports not taking the duloxetine. She says she gets headaches and nausea from it sometimes. She reports not sleeping at night. She reports chronic pain and very little relief from tramadol; she has seen pain management; she says she used to take prescribed oxycodone and it helped everything; she says it helped her mood, pain and sleep. Her PHQ9=14 and her GAD7= 10. She dneies SI or HI; no self harm ideation, plan or intent. Pt reports she used to take lexapro and it helped more than cymbalta; pt reports she used to take ambien and she would sleep well with no side effects.. Past Psychiatric History: pt reports many years of depression; treated outpt; no IPLOC. no previous suicide attempts. Subjective Subjective Subjective Medication Compliance: No Side effects from medications: Yes Review of Systems Medical Review of Systems: unchanged Mental Status Exam Mental Status Exam Patient Appearance: Well Grooomed and Appropriate Patient Orientation: Person, Place, Time and Situation Level of Consciousness: Awake, Appropriate and Alert Patient Behavior: Appropriate, Cooperative and Good Eye Contact Mood Description: Depressed and Anxious Affect Description: Depressed, Anxious and Sad Patient Cognition Impaired: No Ability to Follow Directions: Good Speech Pattern: Clear Memory Description: Intact Hallucinations: None Delusions: Not Present Thought Process: Intact and Goal Oriented Thought Content: positive for Intact and positive for Goal Oriented Judgement: Fair Assessment and Plan Assessment & Plan (1) RAVI (generalized anxiety disorder): Status: Acute Code(s): F41.1 - Generalized anxiety disorder (2) Major depressive disorder, recurrent, moderate: Status: Acute Code(s): F33.1 - Major depressive disorder, recurrent, moderate Plan stop cymbalta start lexapro 5mg daily and zolpidem 5mg at bedtime return in 4 weeks for follow up education re: consistency with meds for efficacy Medications: New escitalopram oxalate (Lexapro) 5 mg PO DAILY 30 tabs 2RF Refilled zolpidem (Ambien) 5 mg PO BEDTIME PRN 30 tabs 2RF sleep Counseling and coordination of Care Pt. Self Management counseling: Maintenance-social rhythm, Mod caffeine/ETOH intake, Nutrition education and improvement, Sleep hygiene and Behavior activation Medication management counseling: Effectiveness, Side effects, Dosing range, Duration, Drug interaction and Adherence Diagnosis and Prognosis Counseling: Accuracy of diagnosis, Prognosis over time, Impact of diagnosis on life functions, Impact of family relationship, Problematic behaviors secondary to diagnosis and Adequacy of current interventions Details: I spent 35 minutes reviewing the record, seeing the patient and documenting in the medical record. Counseling provided to the patient/caregiver as outlined below. Addressed patient/caregiver concerns regarding current medication regime including effective adherence. Addressed patient/caregiver concerns regarding diagnosis and prognosis including accuracy of diagnosis, prognosis over time, impact of diagnosis. Addressed patient/caregiver concerns regarding impact of recent stressors. [facility] Medical History (Updated 01/22/25 @ 09:57 by MANUELA Tafoya) Hemorrhoids with complication Mild recurrent major depression HSV-2 (herpes simplex virus 2) infection Mild persistent asthma, uncomplicated Migraines RAVI (generalized anxiety disorder) Mild single current episode of major depressive disorder Scoliosis Back pain Polyarthralgia Constipation by delayed colonic transit Nausea GERD (gastroesophageal reflux disease) Surgical History History of mammogram History of tubal ligation History of left knee surgery Amputated toe History of splenectomy Family History Father Hypertension Diabetes CVD (cardiovascular disease) Mother Hypertension Social History Housing: Apartment Alcohol intake: never Patient Tobacco Use Status: Never used Tobacco e-Cigarette/Vaping Use: Never Used Second Hand Smoke Exposure: No service: No Current occupational status: unemployed Cognitive needs: No Hearing needs: No Vision needs: No Coding Level of Care Code Est Pt Level 4 (43588) Diagnoses RAVI (generalized anxiety disorder) F41.1 Major depressive disorder, recurrent, moderate F33.1
--- OUTSIDE RECORDS SUMMARY | 2025-02-06 10:32 | XMS_ITS | Clinical Summary ---
Author Organization [address] [place] [address] [address] [place] [address] Phone Care Team Providers Care Change Booth Attendant Name Role Phone Erica Corral MD Primary Care Provider [phone] Surgical History Surgery Date Site/Laterality Comments OTHER SURGICAL HISTORY PROCEDURE: HISTORICAL SPLENECTOMY; COMMENT: ? due to low platelet FOOT SURGERY PROCEDURE: MT UNLISTED PROCEDURE FOOT/TOES; COMMENT: after traumatic amputation [...] RESULTING AGENCY - 04/09/2021 7:45 AM EDT [id number] THINPREP PAP, IMAGED: NEGATIVE FOR SQUAMOUS INTRAEPITHELIAL [...] Z12.4, PAP HX NEG us Shilpi Isa [facility] CYTOLOG[facility] ORDERABLES Final Result HISTORICAL TESTING LAB RESULTING AGENCY from Last 3 Months or Most Recently Relevant to Health Maintenance [place] [address] [place] [address] [employer] Care Teams Change Booth Attendant Relationship Specialty Start Date End Date Erica Corral MD [address] [place] [address] , [address] [facility]: [facility] [place] PCP - General Internal Medicine 02/18/17
== END 2025-02-06 10:24 | disposition home or self-care (01) ==
LOC: HO.HOP 09:48
PROVIDERS: PCP Internal Medicine; Visit Provider Clinical Nurse Specialist Psychiatric/Mental Health
DX: F41.1 Generalized anxiety disorder (principal); F33.1 Major depressive disorder, recurrent, moderate
CPT/HCPCS: 99214

== ENCOUNTER → 2025-02-06 09:48 | Outpatient (BNVA) | payer OTHER, SELFPAY | PROVIDERS: PCP Internal Medicine; Visit Provider Clinical Nurse Specialist Psychiatric/Mental Health | DX: F41.1 Generalized anxiety disorder (principal); F33.1 Major depressive disorder, recurrent, moderate | CPT/HCPCS: 99212 ==

== ENCOUNTER 2025-03-20 09:24 | Outpatient (AMB) | payer OTHER, SELFPAY ==
[2025-03-20 09:35] VITALS: BP 112/62; PULSE 69; O2SAT 97; BMI 23.6
--- NOTE | 2025-03-20 09:35 | A.OFFVIS_ITS ---
Vital Signs 03/20/25 09:35 Height 5 ft 3 in Weight 133 lb BMI 23.6 BP 112/62 Blood Pressure Location Rt brachial Position Sitting Pulse 69 Pulse Source Pulse Oximeter Pulse Oximetry (%) 97 Oxygen Delivery Method Room Air Intake Visit Reasons: Cough Mechanical Service Representative Required: Yes Mechanical Service Representative Name: Mari Gambino Allergies Penicillins (PENICILLINS) Allergy (Intermediate, Verified 03/20/25 09:40) RASH prednisone (PREDNISONE) Allergy (Intermediate, Verified 03/20/25 09:40) Hives, Rash HPI HPI Cough: Details: 54-year-old lady, nonsmoker, with underlying asthma since her early 20s, managed with p.r.n. albuterol MDI, also seasonal allergies on Flonase referred for evaluation of chronic nonproductive cough ongoing for greater than 3 years with no exacerbating or relieving factors also associated with dysphonia. Patient denies family history of lung disease. She denies exposure to industrial dusts. [facility] Medical History (Updated 03/20/25 @ 10:23 by Ponce Obando MD) Hemorrhoids with complication Mild recurrent major depression HSV-2 (herpes simplex virus 2) infection Mild persistent asthma, uncomplicated Migraines RAIV (generalized anxiety disorder) Mild single current episode of major depressive disorder Scoliosis Back pain Polyarthralgia Constipation by delayed colonic transit Nausea GERD (gastroesophageal reflux disease) Surgical History History of mammogram History of tubal ligation History of left knee surgery Amputated toe History of splenectomy Family History Father Hypertension Diabetes CVD (cardiovascular disease) Mother Hypertension Social History Housing: Apartment Alcohol intake: never Patient Tobacco Use Status: Never used Tobacco e-Cigarette/Vaping Use: Never Used Second Hand Smoke Exposure: No service: No Current occupational status: unemployed Cognitive needs: No Hearing needs: No Vision needs: No Review of Systems Const Denies daytime sleepiness, Denies excessive sweating, Denies fatigue, Denies fever(s), Denies lethargy, Denies malaise, Denies night sweats, Denies snoring and Denies weight loss Eyes Denies blurry vision and Denies itchy eyes ENT Denies nasal congestion, Denies post nasal drip, Denies sinus pain, Denies sinus pressure and Denies other ( Thrush) Card Denies chest pain, Denies pedal edema, Denies dyspnea, Denies orthopnea and Denies paroxysmal nocturnal dyspnea Resp Reports cough, Denies hemoptysis, Denies excessive phlegm production, Denies dyspnea, Denies snoring and Denies wheezing GI Denies abdominal pain and Denies heartburn Musc Denies myalgias, Denies arthralgias and Denies joint swelling Skin/Breast Denies rash Neuro Denies memory loss and Denies seizure-like activity Psych Denies abnormal sleep pattern, Denies anxiety and Denies memory loss Endo Denies excessive sweating, Denies fatigue and Denies heat intolerance Darien/Lymph Denies easy bruising Aller/Immun Denies itchy eyes, Denies seasonal rhinorrhea and Denies wheezing Physical Exam Vital Signs: Last Vital Signs Pulse 69 03/20/25 09:35 BP 112/62 03/20/25 09:35 Pulse Ox 97 03/20/25 09:35 Oxygen Delivery Method Room Air 03/20/25 09:35 BMI result Body Mass Index 23.6 Const General: no acute distress and alert Nutritional Appearance: not obese Orientation/consciousness: Other orientation findings ( oriented) HEENT Head: Yes atraumatic Eyes General: appearance normal, both eyes and all related structures Sclerae: sclerae normal EOM: EOMs intact bilaterally Neck Neck: Yes supple Lymphatic: no lymphadenopathy noted Resp Effort & Inspection: normal respiratory effort and no use of accessory muscles Auscultation: clear to auscultation bilaterally Cardio Rate: regular rate Rhythm: regular rhythm Heart sounds: no gallops, no murmurs and no rubs Skin General skin exam: other ( warm) Extrem General: No clubbing, No cyanosis and No edema Assessment & Plan Assessment & Plan (1) Chronic cough: Code(s): R05.3 - Chronic cough Category: Medical Plan: Unclear etiology, may have asthmatic, vocal cord, will allergic component. Does have underlying voice hoarseness and dysphonia. Will refer to ENT for evaluation of possible vocal cord component. (2) Asthma: Code(s): J45.909 - Unspecified asthma, uncomplicated Category: Medical Plan: Of unclear severity and suboptimally controlled at this time. Will start on Breo and obtain full PFT. (3) ILD (interstitial lung disease): Code(s): J84.9 - Interstitial pulmonary disease, unspecified Category: Medical Plan: Suspicion for an ILD component. Will obtain CT chest for further evaluation. Orders: Orders CT chest wo IV con Today J84.9 - Interstitial pulmonary disease, unspecified, R05.3 - Chronic cough PFT pulmonary function test Today R05.3 - Chronic cough Referrals Ear/Nose/Throat Referral J38.3 - Other diseases of vocal cords Medications: New fluticasone furoate-vilanterol 200-25 mcg/dose (Breo Ellipta) 1 inh inhalation DAILY 1 ea 6RF codeine-guaifenesin 10-100 mg/5 mL 10 mL PO Q4-6H PRN 473 mL 0RF cough R05.3 - Chronic cough Coding Level of Care Code New Pt Level 4 (01292) Diagnoses Chronic cough R05.3 Asthma J45.909 ILD (interstitial lung disease) J84.9
--- OUTSIDE RECORDS SUMMARY | 2025-03-20 10:50 | XMS_ITS | Clinical Summary ---
Author Organization [address] [facility] Address [address] [place] [address] Phone Care Team Providers Care Program Director/Traffic Director Name Role Phone Erica Corral MD Primary Care Provider [phone] Allergies No known active allergies Medications cephalexin (KEFLEX) 500 mg capsule Take 1 capsule (500 mg total) by mouth 2 (two) times a day for 3 days. 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 [...] Sexual Orientation Not on file Obstetrics History Last Filed Vital Signs Vital Sign Reading Time Taken Comments Blood Pressure 129/73 02/23/2025 10:28 AM EDT Pulse 80 02/23/2025 10:28 AM EDT Temperature 37 C (98.6 F) 02/23/2025 10:28 AM EDT Respiratory Rate 16 02/23/2025 10:28 AM EDT Oxygen Saturation 98% 02/23/2025 10:28 AM EDT Inhaled Oxygen Concentration - - Weight 60.8 kg (134 lb) 02/23/2025 6:27 AM EDT Height 162.6 cm (5' 4 ) 02/23/2025 6:27 AM EDT Body Mass Index 23 02/23/2025 6:27 AM EDT Plan of Treatment Upcoming Encounters Date Type Department Care Team (Late st Contact Info) Description 03/27/2025 9:30 AM EDT Consult Orthopedic Surgery - [address] [place] [address] Bre Rasheed, MANUELA [address] [place] [phone] Health Maintenance Due Date Last Done Comments Breast Cancer Screening 1970 Colorectal Cancer Screening: Colonoscopy 1969 Hepatitis B Vaccines (1 of 3 - 19+ 3-dose series) 1988 Pneumococcal Vaccine: 50+ Years (1 of 2 - PCV) 1988 Zoster Vaccines (1 of 2) 11/26/2019 HIV Screening 05/16/2022 Hepatitis C Screening 05/16/2022 Social Influencers of Health Screening 05/16/2022 DTaP,Tdap,and Td Vaccines (2 - Td or Tdap) 07/20/2022 07/20/2012 Cervical Cancer Screening: P ap Smear 03/20/2024 03/20/2021, 04/14/2019 Depression Screening 06/14/2024 COVID-19 Vaccine ( - 2023-2 5 season) 2025 Influenza Vaccine (#1) 2025 RSV Immunization Adult Patients (1 - 1-dose 75+ series) 2044 HIB Vaccines Aged Out No longer eligi [...] Procedure Name Priority Date/Time Associated Diagnosis Comments ECG ANNOTATED 02/26/2025 CT ABDOMEN PELVIS W CONTRAST STAT 02/23/2025 10:14 AM EDT POC , URINE DIAGNOSTIC STAT 02/23/2025 10:04 AM EDT ECG 12-LEAD STAT 02/23/2025 9:04 AM EDT HENDESRON URINE CULTURE TUBE STAT 02/23/2025 6:34 AM EDT URINALYSIS WITH REFLEX MICROSCOPIC AND CULTURE STAT 02/23/2025 6:34 AM EDT URINALYSIS WITH REFLEX MICROSCOPIC AND CULTURE STAT 02/23/2025 6:34 AM EDT CULTURE URINE STAT 02/23/2025 6:34 AM EDT CBC WITH AUTO DIFFERENTIAL STAT 02/23/2025 6:30 AM EDT LIPASE STAT 02/23/2025 6:30 AM EDT COMPREHENSIVE METABOLIC PANEL STAT 02/23/2025 6:30 AM EDT CBC AND DIFFERENTIAL STAT 02/23/2025 6:30 AM EDT PAP SMEAR Routine 03/20/2021 from Last 3 Months or Most Recently Relevant to Health Maintenance Results * ECG-Annotated (02/26/2025) us Provider Onbase MD ECG ORDERABLES Final Result * CT Abdomen Pelvis w Contrast (02/23/2025 10:14 AM EDT) Anatomical Region Laterality Modality Body Computed Tomogra phy 02/23/2025 11:0 4 AM EDT Impressions 02/23/2025 11:06 AM EDT No acute findings in the abdomen/pelvis. -------- FINAL REPORT -------- Dictated By: JACOB SUTTON Dictated Date: 02/23/2025 11:04 ET Assigned Physician: JACOB SUTTON Reviewed and Electronically Signed By: JACOB SUTTON Signed Date: 02/23/2025 11:06 ET Workstation ID: [id number] Transcribed By: Self Edit Transcribed Date: 02/23/2025 11:04 ET Narrative 02/23/2025 11:06 AM EDT PROCEDURE: CT ABDOMEN/PELVIS INDICATION: Pain TECHNIQUE: CT of the abdomen and pelvis following the intravenous administration of 90cc Isovue 370. Multiplanar reformats. The examination was performed utilizing dose reduction techniques. Total DLP 451 COMPARISON: 04/20/2022 FINDINGS: LOWER THORAX: Lung bases are clear. HEPATOBILIARY: Scattered hepatic cysts. No cholelithiasis or biliary duct dilatation. 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 PANCREAS: No focal mass or ductal dilatation. ADRENALS: No nodules. KIDNEYS/URETERS: No hydronephrosis, stones, or solid mass. Right renal cysts. PELVIC ORGANS/BLADDER: The uterus, bladder, and adnexal structures are within normal limits. PERITONEUM / RETROPERITONEUM: No ascites or free air. No retroperitoneal lymphadenopathy. VESSELS: Abdominal aorta is normal in size. Portal vein is patent. GI TRACT: No bowel obstruction or wall thickening. Normal appendix. BONES AND SOFT TISSUES: Small fat-containing periumbilical hernia. Mild degenerative changes seen throughout the bones. Procedure Note Jacob Sutton MD - 02/23/2025 PROCEDURE: CT ABDOMEN/PELVIS INDICATION: Pain TECHNIQUE: CT of the abdomen and pelvis following the intravenousadministration of 90cc Isovue 370. Multiplanar reformats. The examinationwas performed utilizing dose reduction techniques. Total DLP 451 COMPARISON: 04/20/2022 FINDINGS: LOWER THORAX: Lung bases are clear. HEPATOBILIARY: Scattered hepatic cysts. No cholelithiasis or biliary ductdilatation. SPLEEN: Splenectomy with multiple small splenules remaining in the leftupper quadrant. PANCREAS: No focal mass or ductal dilatation. ADRENALS: No nodules. KIDNEYS/URETERS: No hydronephrosis, stones, or solid mass. Right renalcysts. PELVIC ORGANS/BLADDER: The uterus, bladder, and adnexal structures arewithin normal limits. PERITONEUM / RETROPERITONEUM: No ascites or free air. No retroperitoneallymphadenopathy. VESSELS: Abdominal aorta is normal in size. Portal vein is patent. GI TRACT: No bowel obstruction or wall thickening. Normal appendix. BONES AND SOFT TISSUES: Small fat-containing periumbilical hernia. Milddegenerative changes seen throughout the bones. IMPRESSION: No acute findings in the abdomen/pelvis. -------- FINAL REPORT -------- Dictated By: JACOB SUTTON Dictated Date: 02/23/2025 11:04 ET Assigned Physician: JACOB SUTTON Reviewed and Electronically Signed By: JACOB SUTTON Signed Date: 02/23/2025 11:06 ET Workstation ID: [id number] Transcribed By: Self Edit Transcribed Date: 02/23/2025 11:04 ET us Mejia Joe MD IMElan CT PROCEDURES Fi nal Result * POC , urine manually resulted (02/23/2025 10:04 AM EDT) [facility] HCG, Ur POC Negative Negative POC hCG Int QC Pass? Yes Yes Urine Urine specimen obtained by clean catch procedure / Unknown 02/23/2025 10:04 AM EDT Mejia Joe MD POINT OF CARE TEST E NTER/EDIT ORDERABLES Final Result * ECG 12 lead (02/23/2025 9:04 AM EDT) [facility] Ventricular Rate ECG 72 BPM GEMUSE Atrial Rate 72 BPM GEMUSE P-R Interval 164 ms GEMUSE QRS Duration 78 ms GEMUSE Q-T Interval 420 ms GEMUSE QTc 459 ms GEMUSE P Wave [place] 48 degrees GEMUSE R [place] 21 degrees GEMUSE T [place] 34 degrees GEMUSE ECG Interpretation Normal sinus rhythm Normal ECG When compared with ECG of 05-JAN-2022 12:45, No significant change was found Confirmed by MD IDRIS, ADELA ([id number]) on 02/23/2025 4:36:32 PM GEMUSE 02/23/2025 9:04 AM EDT 02/23/2025 4:36 PM EDT Mejia Joe MD ECG ORDERABLES Ruth l Result GEMUSE * (ABNORMAL) Urinalysis with reflex microscopic and culture (02/23/2025 6:34 AM EDT) [facility] Specific Maljamar Urine 1.027 1.003 - 1.030 LAB URINALYSIS - AUTOMATED METHOD 02/23/2025 7:04 AM EDT [facility] pH, Urine 6.5 5.0 - 8.0 pH LAB URINALYSIS - AUTOMATED METHOD 02/23/2025 7:04 AM EDT [facility] Leukocytes, Urine Small(A) Negative LAB URINALYSIS - AUTOMATED METHOD 02/23/2025 7:04 AM EDT [facility] Nitrite, Urine Negative Negative LAB URINALYSIS - AUTOMATED METHOD 02/23/2025 7:04 AM [facility] Protein, Urine 30(A) <=Trace mg/dL LAB URINALYSIS - AUTOMATED METHOD 02/23/2025 7:04 AM [facility] Glucose, Urine Negative Negative mg/dL LAB URINALYSIS - AUTOMATED METHOD 02/23/2025 7:04 AM [facility] Ketones, Urine Negative Negative mg/dL LAB URINALYSIS - AUTOMATED METHOD 02/23/2025 7:04 AM [facility] Urobilinogen , Urine 1.0 0.2 - 1.0 mg/dL LAB URINALYSIS - AUTOMATED METHOD 02/23/2025 7:04 AM [facility] Bilirubin, Urine Negative Negative LAB URINALYSIS - AUTOMATED METHOD 02/23/2025 7:04 AM [facility] Blood, Urine Moderate(A) Negative LAB URINALYSIS - AUTOMATED METHOD 02/23/2025 7:04 AM [facility] RBC, Urine 3.3 0 - 4 /HPF LAB URINALYSIS - AUTOMATED METHOD 02/23/2025 7:04 AM [facility] WBC, Urine 3.5 0 - 4 /HPF LAB URINALYSIS - AUTOMATED METHOD 02/23/2025 7:04 AM [facility] Squamous Epithelial, Urine >100(H) 0 - 60 /LPF LAB URINALYSIS - AUTOMATED METHOD 02/23/2025 7:04 AM [facility] Bacteria, Urine Negative Negative /HPF LAB URINALYSIS - AUTOMATED METHOD 02/23/2025 7:04 AM [facility] Hyaline Casts, Urine 1.2 0 - 3 /LPF LAB URINALYSIS - AUTOMATED METHOD 02/23/2025 7:04 AM [facility] Urine Urine specimen obtained by clean catch procedure / Unknown Non-blood Collection / Unknown 02/23/2025 6:34 AM EDT 02/23/2025 6:44 AM EDT Greg Pederson MD LAB URINE ORDERABLES Final Resul t Performing Organization Address [facility]/ZIP Co de Phone Number [facility] [address] [place] [address], [place] [phone] * [place] urine culture tube (02/23/2025 6:34 AM EDT) Pathologist [facility] Extra Tube Hold for add-ons. 02/23/2025 8:01 AM EDT [facility] Comment:Auto resulted. Urine Urine specimen obtained by clean catch procedure / Unknown Non-blood Collection / Unknown 02/23/2025 6:34 AM EDT 02/23/2025 6:44 AM EDT Greg Pederson MD LAB URINE ORDERABLES Final Resul t Performing Organization Address [facility] Co de Phone Number [facility] [address] [place] [address], [place] [phone] * Culture urine (02/23/2025 6:34 AM EDT) Pathologist [facility] Culture, Urine <10,000 CFU/mL gram positive cocci, insignificant count, no further workup 02/24/2025 9:28 AM EDT [facility] Urine Urine specimen obtained by clean catch procedure / Unknown Non-blood Collection / Unknown 02/23/2025 6:34 AM EDT 02/23/2025 7:04 AM EDT us Greg Pederson MD LAB MICROBIOLOGY - GENERAL ORDER GAUDENCIO Final Result Performing Organization Address [facility]/ZIP Co de Phone Number [facility] [address] [place] [address], [place] [phone] * CBC auto differential (02/23/2025 6:30 AM EDT) [facility] WBC 8.5 4.8 - 10.8 K/mcL LAB HEMETOLOGY METHOD 02/23/2025 6:56 AM EDT [facility] RBC 4.30 3.80 - 4.80 M/mcL LAB HEMETOLOGY METHOD 02/23/2025 6:56 AM EDT [facility] Hemoglobin 13.0 11.5 - 16.0 g/dL LAB HEMETOLOGY METHOD 02/23/2025 6:56 AM EDT [facility] Hematocrit 39.0 35.0 - 47.0 % LAB HEMETOLOGY METHOD 02/23/2025 6:[facility] MCV 90.5 79.0 - 98.0 FL LAB HEMETOLOGY METHOD 02/23/2025 6:56 AM [facility] MCH 30.2 27.0 - 32.0 pcg LAB HEMETOLOGY METHOD 02/23/2025 6:56 AM [facility] MCHC 33.3 32.0 - 37.0 g/dL LAB HEMETOLOGY METHOD 02/23/2025 6:56 AM [facility] RDW 11.9 11.0 - 15.0 % LAB HEMETOLOGY METHOD 02/23/2025 6:56 AM [facility] Platelets 359 130 - 400 K/mcL LAB HEMETOLOGY METHOD 02/23/2025 6:56 AM EDT [facility] MPV 9.9 7.0 - 11.0 FL LAB HEMETOLOGY METHOD 02/23/2025 6:56 AM EDT [facility] NRBC 0.0 <1.0 % LAB HEMETOLOGY METHOD 02/23/2025 6:56 [facility] NRBC Absolute 0.00 <0.10 K/mcL LAB HEMETOLOGY METHOD 02/23/2025 6:56 AM [facility] Neutrophils Relative 56.0 % LAB HEMETOLOGY METHOD 02/23/2025 6:56 AM [facility] Lymphocytes Relative 36.8 % LAB HEMETOLOGY METHOD 02/23/2025 6:56 AM [facility] Monocytes Relative 6.3 % LAB HEMETOLOGY METHOD 02/23/2025 6:56 AM [facility] Eosinophils Relative 0.2 % LAB HEMETOLOGY METHOD 02/23/2025 6:56 AM [facility] Basophils Relative 0.6 % LAB HEMETOLOGY METHOD 02/23/2025 6:56 AM [facility] Immature Granulocytes Relative 0.1 % LAB HEMETOLOGY METHOD 02/23/2025 6:56 AM [facility] Neutrophils Absolute 4.75 1.50 - 7.00 K/mcL LAB HEMETOLOGY METHOD 02/23/2025 6:56 AM [facility] Lymphocytes Absolute 3.12 1.00 - 5.00 K/mcL LAB HEMETOLOGY METHOD 02/23/2025 6:56 AM [facility] Monocytes Absolute 0.53 0.20 - 1.00 K/mcL LAB HEMETOLOGY METHOD 02/23/2025 6:56 AM [facility] Eosinophils Absolute 0.02 0.00 - 0.50 K/mcL LAB HEMETOLOGY METHOD 02/23/2025 6:56 AM [facility] Basophils Absolute 0.05 0.00 - 0.20 K/mcL LAB HEMETOLOGY METHOD 02/23/2025 6:56 AM [facility] Immature Granulocytes Absolute 0.01 0.00 - 0.03 K/mcL LAB HEMETOLOGY METHOD 02/23/2025 6:56 AM [facility] Blood Venous blood specimen / Unknown Venipuncture / Unknown 02/23/2025 6:30 AM EDT 02/23/2025 6:44 AM EDT us Greg Pederson MD LAB BLOOD ORDERABLES Final Resul t Performing Organization Address City/[facility]/ZIP Co de Phone Number [facility] [address] [place] [address], [place] [phone] * Lipase (02/23/2025 6:30 AM EDT) Pathologist [facility] Lipase 33 13 - 75 unit/L LAB CHEMISTRY METHOD 02/23/2025 7:14 AM EDT [facility] Blood Venous blood specimen / Unknown Venipuncture / Unknown 02/23/2025 6:30 AM EDT 02/23/2025 6:44 AM EDT us Greg Pederson MD LAB BLOOD ORDERABLES Final Resul t Performing Organization Address City/[facility]/ZIP Co de Phone Number [facility] [address] [place] [address], [place] [phone] * Comprehensive metabolic panel (02/23/2025 6:30 AM EDT) Pathologist [facility] Sodium 138 133 - 145 mmol/L LAB CHEMISTRY METHOD 02/23/2025 7:14 AM T [facility] Potassium 4.0 3.5 - 5.5 mmol/L LAB CHEMISTRY METHOD 02/23/2025 7:14 AM T [facility] Chloride 104 96 - 110 mmol/L LAB CHEMISTRY METHOD 02/23/2025 7:14 AM [facility] CO2 29 21 - 32 mmol/L LAB CHEMISTRY METHOD 02/23/2025 7:14 AM [facility] Anion Gap 5 3 - 11 LAB CHEMISTRY METHOD 02/23/2025 7:14 AM [facility] Glucose 99 70 - 100 mg/dL LAB CHEMISTRY METHOD 02/23/2025 7:14 AM [facility] BUN 17 5 - 25 mg/dL LAB CHEMISTRY METHOD 02/23/2025 7:14 AM [facility] Creatinine 0.69 0.50 - 1.10 mg/dL LAB CHEMISTRY METHOD 02/23/2025 7:14 AM [facility] eGFR 103 >=60 mL/min/1. 73m2 LAB CHEMISTRY METHOD 02/23/2025 7:14 AM [facility] Comment:Calculation based on the Chronic Kidney Disease Epidemiology Collaboration (CKD-EPI) equation refit without adjustment for race. BUN/Creatinine Ratio 24.6 LAB CHEMISTRY METHOD 02/23/2025 7:14 AM [facility] Calcium 9.8 8.5 - 10.5 mg/dL LAB CHEMISTRY METHOD 02/23/2025 7:14 AM [facility] AST (SGOT) 16 10 - 42 unit/L LAB CHEMISTRY METHOD 02/23/2025 7:14 AM [facility] ALT (SGPT) 16 10 - 60 unit/L LAB CHEMISTRY METHOD 02/23/2025 7:14 AM [facility] Alkaline Phosphatase 112 42 - 121 unit/L LAB CHEMISTRY METHOD 02/23/2025 7:14 AM [facility] Total Protein 7.7 6.0 - 8.0 g/dL LAB CHEMISTRY METHOD 02/23/2025 7:14 AM [facility] Albumin 4.2 3.2 - 5.0 g/dL LAB CHEMISTRY METHOD 02/23/2025 7:14 AM [facility] Total Bilirubin 1.3 0.0 - 1.4 mg/dL LAB CHEMISTRY METHOD 02/23/2025 7:14 AM [facility] Blood Venous blood specimen / Unknown Venipuncture / Unknown 02/23/2025 6:30 AM EDT 02/23/2025 6:44 AM EDT Greg Pederson MD LAB BLOOD ORDERABLES Final Resul t CHARITO SKY [place] ([facility]) [facility] [address] [place] [address], * Pap smear (03/20/2021) 03/20/2021 Narrative HISTORICAL TESTING LAB RESULTING AGENCY - 04/09/2021 7:45 AM EDT [id number] THINPREP PAP, IMAGED: NEGATIVE FOR SQUAMOUS INTRAEPITHELIAL [...] MENOPAUSE, Z12.4, PAP HX NEG Shilpi Moss CNM LAB CYTOLOGY ORDERABLES Final Result HISTORICAL TESTING LAB RESULTING AGENCY from Last 3 Months or Most Recently Relevant to Health Maintenance Insurance [facility] [employer] [facility] Care Teams Program Director/Traffic Director Relationship Specialty Start Date End Date Erica Corral MD [address] [facility] , [address] [facility] D/B/A: [facility] PAULION Canas PCP - General Internal Medicine 02/18/17
== END 2025-03-20 10:06 | disposition home or self-care (01) ==
LOC: HO.HPS 09:34
PROVIDERS: PCP Internal Medicine; Referring Provider Internal Medicine; Visit Provider Internal Medicine Pulmonary Disease
DX: R05.3 Chronic cough (principal); J45.909 Unspecified asthma, uncomplicated; J84.9 Interstitial pulmonary disease, unspecified
CPT/HCPCS: 99204

== ENCOUNTER → 2025-03-20 09:24 | Outpatient (BNVA) | payer OTHER, SELFPAY | PROVIDERS: PCP Internal Medicine; Referring Provider Internal Medicine; Visit Provider Internal Medicine Pulmonary Disease | DX: R05.3 Chronic cough (principal); J84.9 Interstitial pulmonary disease, unspecified; J45.909 Unspecified asthma, uncomplicated | CPT/HCPCS: 99202 ==